=== PATIENT | male | born 1940 | race Caucasian/White ===

== ENCOUNTER 2016-10-19 12:49 | Inpatient (IN) | payer MEDICARE, OTHER ==
[2016-10-19] VITALS (8 sets, daily range): BP systolic 114–135; BP diastolic 60–86; PULSE 87–96; RESP 16–20; TEMP 98; O2SAT 92–98
[~2016-10-19] VITALS: Ht 177.8 cm; Wt 84.0 kg
[~2016-10-19 12:49] MED LIST: ALEN70TA39 PO; AMIT25 PO; ASPI325T PO; CHLO5 PO; CLOP75 PO; DOCU1CAP39 PO; HYDR-3533 PO; METO50 PO; MOBI15TA PO; PEPT262T2 PO; SIMV20 PO; TRAM100T19 PO; [UNRECOGNIZED DRUG - REMARK] PO
[2016-10-19] MEDS ORDERED: SODIUM CHLORIDE 0.9% FLUSH 5 ML FLUSH IVF PRN (13:00)
[2016-10-19] MEDS ORDERED: SODIUM CHLORID 0.9% 500 ML INJ 500 ML IV ONE (13:15)
--- NOTE | 2016-10-19 13:16 | PD ---
HPI Chief Complaint: General Weakness Time Seen by Provider: 13:06 Travel History International Travel<30 days: No Contact w/Intl Traveler<30days: No Traveled to known affect area: No History of Present Illness HPI 75-year-old male with history of CAD, status post CABG, stenting, aortic valve replacement, AVani garcia, presents to the ER today because he states that he has been feeling weak for several months and thinks he may have slipped and fallen 2 days ago, has been on the floor because he was not able to get up for 2 days. He does say he has a small amount of left parasternal chest discomfort which she states is mild and feels like it is burning. He denies any shortness of breath, fevers, vomiting, or any other symptoms. He denies any injuries. Modifying Factors: None Associated Signs & Symptoms: General weakness, chest discomfort, fell, laying on the floor for 2 days Risk Factors: Elderly cardiac history PFSH Past Medical History Hx Anticoagulant Therapy: Yes Arthritis: Yes Asthma: No Atrial Fibrillation: Yes Autoimmune Disease: No Blood Disorders: No Anxiety: Yes Depression: Yes Heart Rhythm Problems: Yes (AFIB) Cancer: No Cardiac Catheterization: Yes (2 STENTS) Cardiovascular Problems: Yes (CABG) High Cholesterol: No Chemotherapy: No Chest Pain: Yes (YEARS AGO) Congestive Heart Failure: No COPD: No Cerebrovascular Accident: Yes Diabetes: No Diminished Hearing: Yes ([place]) Endocrine: No GERD: No Glaucoma: No Genitourinary: Yes Headaches: No Hepatitis: No Hiatal Hernia: No Hypertension: Yes Immune Disorder: No Kidney Stones: Yes Musculoskeletal: Yes (ODONTOID FX. 1991) Neurologic: Yes Psychiatric: Yes Reproductive: No Respiratory: No Immunizations Current: No (UNKNOWN) Migraines: Yes Myocardial Infarction: Yes Radiation Therapy: No Renal Failure: No Seizures: No Sickle Cell Disease: No Sleep Apnea: No Thyroid Disease: No Ulcer: No Past Surgical History Abdominal Surgery: Yes AICD: No Appendectomy: No Arteriovenous Shunt: No Cardiac Surgery: Yes (BYPASS, AORTIC VALVE) Cholecystectomy: Yes Coronary Artery Bypass Graft: Yes (2 BYPASSES, AORTA REPLACED) Coronary Stent: Yes Ear Surgery: No Endocrine Surgery: No Eye Surgery: No Genitourinary Surgery: No Gynecologic Surgery: No Insulin Pump: No Joint Replacement: Yes (L HIP) Oral Surgery: No Pacemaker: No Thoracic Surgery: Yes (TONSILLECTOMY) Tonsillectomy: Yes Valve Replacement: Yes (AORTIC VALVE) Other Surgery: Yes Social History Alcohol Use: No Tobacco Use: No Substance Use: No Allergies-Medications (Allergen,Severity, Reaction): Coded Allergies: Codeine (Verified Allergy, Severe, 10/19/16) CONFUSION, Reported Meds & Prescriptions Reported Meds & Active Scripts Active Reported Aspirin 325 Mg Tab 325 Mg PO DAILY Plavix (Clopidogrel Bisulfate) 75 Mg Tab 75 Mg PO HS Colace (Docusate Sodium) 100 Mg Cap 100 Mg PO BID PRN Mobic (Meloxicam) 15 Mg Tab 15 Mg PO DAILY Metoprolol Tartrate 50 Mg Tab 50 Mg PO BID Zocor (Simvastatin) 20 Mg Tab 20 Mg PO HS Tramadol (Tramadol HCl) 50 Mg Tab 50 Mg PO QID Simethicone 80 Mg Chw 80 Mg CHEW TID PRN Review of Systems Except as stated in HPI: all other systems reviewed are Neg Physical Exam Narrative GENERAL: Well-nourished, well-developed elderly white male patient in no acute distress. Awake and oriented 3. SKIN: Warm and dry. HEAD: Normocephalic. EYES: No scleral icterus. No injection or drainage. NECK: Supple, trachea midline. CARDIOVASCULAR: Regular rate and rhythm without murmurs, gallops, or rubs. RESPIRATORY: Breath sounds equal with intermittent wheezing bilaterally. No accessory muscle use. GASTROINTESTINAL: Abdomen soft, non-tender, nondistended. MUSCULOSKELETAL: No cyanosis, or edema. BACK: Nontender without obvious deformity. No CVA tenderness. Data Data Last Documented VS Vital Signs Date Time Temp Pulse Resp B/P Pulse Ox O2 Delivery O2 Flow Rate FiO2 10/19/16 14:11 93 Room Air 10/19/16 13:42 20 10/19/16 12:58 98.0 95 116/66 Orders Electrocardiogram (10/19/16 12:57) Complete Blood Count With Diff (10/19/16 12:57) Comprehensive Metabolic Panel (10/19/16 12:57) Magnesium (Mg) (10/19/16 12:57) Ckmb (Isoenzyme) Profile (10/19/16 12:57) Troponin I (10/19/16 12:57) Act Partial Throm Time (Ptt) (10/19/16 12:57) Prothrombin Time / Inr (Pt) (10/19/16 12:57) Urinalysis - C+S If Indicated (10/19/16 12:57) Chest, Single Ap (10/19/16 12:57) Ecg Monitoring (10/19/16 12:57) Iv Access Insert/Monitor (10/19/16 12:57) Oximetry (10/19/16 12:57) Sodium Chloride 0.9% Flush (Ns Flush) (10/19/16 13:00) Creatine Kinase (Cpk) (10/19/16 12:57) Sodium Chlorid 0.9% 500 Ml Inj (Ns 500 M (10/19/16 13:15) Pelvis, Ap Only (Routine) (10/19/16 13:16) Ct Brain W/O Iv Contrast(Rout) (10/19/16 13:16) Lactic Acid Sepsis Protocol (10/19/16 15:32) Blood Culture (10/19/16 15:32) Ceftriaxone Inj (Rocephin Inj) (10/19/16 15:32) Azithromycin Inj (Zithromax Inj) (10/19/16 15:32) Admit Order (Ed Use Only) (10/19/16 15:41) Labs Laboratory Tests Test 10/19/16 10/19/16 10/19/16 13:04 13:19 14:09 White Blood Count 16.2 TH/MM3 Red Blood Count 4.15 MIL/MM3 Hemoglobin 9.8 GM/DL Hematocrit 31.6 % Mean Corpuscular Volume 76.1 FL Mean Corpuscular Hemoglobin 23.5 PG Mean Corpuscular Hemoglobin 30.8 % Concent Red Cell Distribution Width 19.3 % Platelet Count 232 TH/MM3 Mean Platelet Volume 8.7 FL Neutrophils (%) (Auto) 80.7 % Lymphocytes (%) (Auto) 9.5 % Monocytes (%) (Auto) 9.6 % Eosinophils (%) (Auto) 0.0 % Basophils (%) (Auto) 0.2 % Neutrophils # (Auto) 13.1 TH/MM3 Lymphocytes # (Auto) 1.5 TH/MM3 Monocytes # (Auto) 1.5 TH/MM3 Eosinophils # (Auto) 0.0 TH/MM3 Basophils # (Auto) 0.0 TH/MM3 CBC Comment AUTO DIFF Differential Comment AUTO DIFF CONFIRMED Platelet Estimate NORMAL Platelet Morphology Comment NORMAL Ovalocytes 1+ Sodium Level 137 MEQ/L Potassium Level 3.8 MEQ/L Chloride Level 100 MEQ/L Carbon Dioxide Level 25.7 MEQ/L Anion Gap 11 MEQ/L Blood Urea Nitrogen 15 MG/DL Creatinine 0.85 MG/DL Estimat Glomerular Filtration 87 ML/MIN Rate Random Glucose 106 MG/DL Calcium Level 8.8 MG/DL Magnesium Level 1.2 MG/DL Total Bilirubin 0.7 MG/DL Aspartate Amino Transf 24 U/L (AST/SGOT) Alanine Aminotransferase 13 U/L (ALT/SGPT) Alkaline Phosphatase 68 U/L Total Creatine Kinase 68 U/L Troponin I LESS THAN 0.02 NG/ML Total Protein 6.6 GM/DL Albumin 2.9 GM/DL Urine Color YELLOW Urine Turbidity CLEAR Urine pH 7.0 Urine Specific [place] 1.018 Urine Protein NEG mg/dL Urine Glucose (UA) NEG mg/dL Urine Ketones 10 mg/dL Urine Occult Blood NEG Urine Nitrite NEG Urine Bilirubin NEG Urine Urobilinogen LESS THAN 2.0 MG/DL Urine Leukocyte Esterase NEG Urine WBC 0-2 /hpf Urine Amorphous Sediment SMALL Urine Bacteria RARE /hpf Urine Mucus RARE /lpf Prothrombin Time 13.4 SEC Prothromb Time International 1.2 RATIO Ratio Activated Partial 26.3 SEC Thromboplast Time MDM Medical Decision Making Medical Screen Exam Complete: Yes Emergency Medical Condition: Yes Medical Record Reviewed: Yes Interpretation(s) EKG shows A. fib at a rate of 90 bpm with no signs of acute ST-T changes. Laboratory Tests Test 10/19/16 10/19/16 10/19/16 13:04 13:19 14:09 White Blood Count 16.2 TH/MM3 (4.0-11.0) Red Blood Count 4.15 MIL/MM3 (4.50-5.90) Hemoglobin 9.8 GM/DL (13.0-17.0) Hematocrit 31.6 % (39.0-51.0) Mean Corpuscular Volume 76.1 FL (80.0-100.0) Mean Corpuscular Hemoglobin 23.5 PG (27.0-34.0) Mean Corpuscular Hemoglobin 30.8 % Concent (32.0-36.0) Red Cell Distribution Width 19.3 % (11.6-17.2) Neutrophils (%) (Auto) 80.7 % (16.0-70.0) Monocytes (%) (Auto) 9.6 % (0.0-8.0) Neutrophils # (Auto) 13.1 TH/MM3 (1.8-7.7) Monocytes # (Auto) 1.5 TH/MM3 (0-0.9) Ovalocytes 1+ (NORMAL) Estimat Glomerular Filtration 87 ML/MIN (>89) Rate Magnesium Level 1.2 MG/DL (1.5-2.5) Troponin I LESS THAN 0.02 NG/ML (0.02-0.05) Albumin 2.9 GM/DL (3.4-5.0) Urine Ketones 10 mg/dL (NEG) Urine Bacteria RARE /hpf (NONE) Prothrombin Time 13.4 SEC (9.8-11.6) Last [address] 10/19/16 1316 Signed Impressions: Service Date/Time: Wednesday, October 19, 2016 13:44 - CONCLUSION: 1. Mild to moderate periventricular and subcortical white matter small vessel ischemic changes bilaterally. 2. Mild diffuse cerebral atrophy. 3. Old lacunar infarcts within the right basal ganglia and left cerebellar hemisphere. 4. No acute infarct, acute hemorrhage, midline shift or extra-axial fluid collections. Enio Dejesus MD Differential Diagnosis General weakness, chest discomfort, falldehydration versus metabolic issues versus rhabdomyolysis versus ACS versus dysrhythmias Narrative Course Lab work shows leukocytosis and saturations are decreased, I am concerned for possible underlying pneumonia. Patient is generally weak, could not get himself off the floor, and I am concerned with him living alone. Lab work otherwise does not indicate any rhabdomyolysis. CT of the brain is negative for any signs of acute issues. At this point, my plan would be to admit him for further treatment and PT evaluation for activities of daily living. Case is discussed with family practice residents for admission. Diagnosis Primary Impression: SEPSIS, UNSPECIFIED ORGANISM Additional Impression: REPEATED FALLS Admitting Information Admitting Physician Requests: Admit Lukasz Hamilton MD Oct 19, 2016 13:16
[2016-10-19 13:19] LABS: AUTOMATED NEUTROPHIL # 13.1 TH/MM3 (1.8-7.7); BASOPHIL % 0.2 % (0.0-2.0); HEMATOCRIT 31.6 % (39.0-51.0); LYMPH % 9.5 % (9.0-44.0); LYMPHOCYTE # 1.5 TH/MM3 (1.0-4.8); MEAN CELL VOLUME 76.1 FL (80.0-100.0); MEAN CORPUSCULAR HEMOGLOBIN 23.5 PG (27.0-34.0); MEAN CORPUSCULAR HGB CONC 30.8 % (32.0-36.0); MONO % 9.6 % (0.0-8.0); NEUT % 80.7 % (16.0-70.0); PLATELET COUNT 232 TH/MM3 (150-450); RED BLOOD COUNT 4.15 MIL/MM3 (4.50-5.90); RED CELL DISTRIBUTION WIDTH 19.3 % (11.6-17.2); WHITE BLOOD COUNT 16.2 TH/MM3 (4.0-11.0)
[2016-10-19] MEDS ORDERED: METO50TA PO (13:19)
[2016-10-19] MEDS ORDERED: ZOCO20TA PO (13:19)
[2016-10-19] MEDS ORDERED: TRAM50TA PO (13:19)
[2016-10-19] MEDS ORDERED: MOBI15TA PO (13:19)
[2016-10-19] MEDS ORDERED: COLA100C3 PO (13:19)
[2016-10-19] MEDS ORDERED: PLAV75TA29 PO (13:19)
[2016-10-19] MEDS ORDERED: ASPI325T PO (13:19)
[2016-10-19] MEDS ORDERED: SIME80CH CHEW (13:19)
[2016-10-19 13:26] LABS: HEMO FLAGS AUTO DIFF
[2016-10-19 13:39] LABS: BLOOD, URINE NEG (NEG); GLUCOSE,URINE NEG (NEG); KETONE, URINE 10 mg/dL (NEG); NITRITE,URINE NEG (NEG); URINE COLOR YELLOW (YELLW/STRAW)
[2016-10-19 13:50] LABS: ALKALINE PHOSPHATASE 68 U/L (45-117); ALT (GPT) 13 U/L (12-78); ANION GAP 11 MEQ/L (5-15); AST (GOT) 24 U/L (15-37); BICARBONATE 25.7 MEQ/L (21.0-32.0); BLOOD UREA NITROGEN 15 MG/DL (7-18); CHLORIDE 100 MEQ/L (98-107); GLOMERULAR FILTRATION RATE 87 ML/MIN (>89); MAGNESIUM 1.2 MG/DL (1.5-2.5); SODIUM (NA) 137 MEQ/L (136-145); TOTAL BILIRUBIN ADULT 0.7 MG/DL (0.2-1.0)
[2016-10-19 13:51] LABS: CREATINE KINASE 68 U/L (39-308); POTASSIUM 3.8 MEQ/L (3.5-5.1)
[2016-10-19 13:57] LABS: OVALOCYTES 1+ (NORMAL); PLATELET ESTIMATE SMEAR NORMAL (NORMAL); PLATELET MORPHOLOGY NORMAL (NORMAL); SCAN/DIFF AUTO DIFF CONFIRMED
[2016-10-19 14:03] LABS: BACTERIA, URINE RARE /hpf; CULTURE IF INDICATED CULT NOT INDICATED; MUCUS URINE RARE /lpf (OCC); WBC, URINE 0-2 /hpf (0-5)
--- NOTE | 2016-10-19 14:14 | RADRPT ---
EXAM DATE/TIME: 10/19/2016 13:44 [facility] COMPARISON: CT BRAIN W/O CONTRAST, March 05, 2016, 16:07. INDICATIONS : Trauma. Fell 2 days ago and was on the floor ever since. RADIATION DOSE: 56.35 CTDIvol (mGy) MEDICAL HISTORY : Cardiovascular disease. Cardiovascular disease Hypertension.C1, C2 fractures. SURGICAL HISTORY : CABG ENCOUNTER: Initial ACUITY: 2 days PAIN SCALE: 0/10 LOCATION: Cranial TECHNIQUE: Multiple contiguous axial images were obtained of the head. Using automated exposure control and adj ustment of the mA and/or kV according to patient size, radiation dose was kept as low as reasonably a chievable to obtain optimal diagnostic quality images. FINDINGS: There are old lacunar infarcts involving the right basal ganglia and left cerebellar hemisphere which are unchanged. Mild diffuse cerebral atrophy is noted. Mild to moderate periventri cular and subcortical white matter small vessel ischemic changes are noted bilaterally. There is no acute hemo rrhage, acute infarct, mass effect or extra-axial fluid collections. The bone windows are unremarkable. CONCLUSION: 1. Mild to moderate periventricular and subcortical white matter small vessel ischemic changes bilate rally. 2. Mild diffuse cerebral atrophy. 3. Old lacunar infarcts within the right basal ganglia and left cerebellar hemisphere. 4. No acute infarct, acute hemorrhage, midline shift or extra-axial fluid collections. Enio Dejesus MD on October 19, 2016 at 13:58 Board Certified Radiologist. This report was verified electronically.
[2016-10-19 14:31] LABS: APTT (PATIENT) 26.3 SEC (24.3-30.1); INTERNATIONAL NORMALIZED RATIO 1.2 RATIO; PROTHROMBIN TIME - PATIENT 13.4 SEC (9.8-11.6)
--- NOTE | 2016-10-19 15:11 | RADRPT ---
EXAM DATE/TIME: 10/19/2016 14:49 [facility] COMPARISON: PELVIS AP ONLY, March 05, 2016, 16:02. INDICATIONS : Back area pain after fall. MEDICAL HISTORY : None. SURGICAL HISTORY : CABG. Left hip replacement 1995. H/O 2 stents and aortic valve. Open heart [id number]. ENCOUNTER: Initial ACUITY: 2 days PAIN SCORE: 7/10 LOCATION: Bilateral pelvis. Kidney and back area. FINDINGS: The patient is status post left hip replacement with prosthesis in good position. There is no acute fracture or dislocation of the bony pelvis. CONCLUSION: 1. No acute fracture or dislocation. 2. Status post left total hip arthroplasty. Enio Dejesus MD on October 19, 2016 at 15:04 Board Certified Radiologist. This report was verified electronically.
--- NOTE | 2016-10-19 15:13 | RADRPT ---
EXAM DATE/TIME: 10/19/2016 14:53 [facility] COMPARISON: CT ABDOMEN & PELVIS W CONTRAST, January 09, 2013, 16:09. CHEST SINGLE AP, March 05, 2016, 15:59. INDICATIONS : Palpitations. MEDICAL HISTORY : None. SURGICAL HISTORY : CABG. H/O 2 stents and double bypass, aortic valve. ENCOUNTER: Initial ACUITY: 2 days PAIN SCORE: 0/10 LOCATION: Bilateral chest FINDINGS: The heart is enlarged. Median sternotomy wires are noted status post cardiac surgery. Scattered inc reased interstitial markings are noted consistent with fibrotic scarring and/or atelectasis. CONCLUSION: 1. Scattered increased interstitial markings consistent with atelectasis and/or fibrotic scarring. 2. Cardiomegaly. Enio Dejesus MD on October 19, 2016 at 15:06 Board Certified Radiologist. This report was verified electronically.
[2016-10-19] MEDS ORDERED: cefTRIAXone INJ 2,000 MG in SODIUM CHLORIDE 0.9% INJ 100 ML IV STA (15:32)
[2016-10-19] MEDS ORDERED: AZITHROMYCIN INJ 500 MG in SODIUM CHLOR 0.9% 250 ML INJ 250 ML IV STA (15:32)
--- NOTE | 2016-10-19 15:54 | HHI.HP ---
[facility] Service Family Medicine Team A Dr. Kumar attending Dr. Powell PGY2 Dr. Farley PGY1 Dr. Chaidez PGY3 Primary Care Physician [facility] Admission Diagnosis sepsis/general weakness/frequent falls Diagnoses: International Travel<30 Days: No Contact w/Intl Traveler<30days: No Known Affected Area: No History of Present Illness This is a 75 yo male with a medical history significant for CAD, s/p CABG, aortic valve replacement, bilateral knee OA, and a-fib who presents to ED after sustaining a fall 2 days ago. The patient reports he has been fallen several times over the years because he gets "weak in the knees." He usually ambulates with a cane or a walker. He fell two days ago, and could not get up. After trying for two days and stooling on himself, he called 911 using the phone next to him. He denies every having CP, SOB, or lightheaded ness. He is estranged from his children. [facility], last seen over 6 months ago. Was supposed to see a pain management doctor on Tuesday. The patient admits that he cannot care for himself anymore. He is saddened by this , but would like to live some where where he could be cared for. Review of Systems Constitutional: DENIES: Fever, Chills Respiratory: COMPLAINS OF: Shortness of breath, DENIES: Cough Cardiovascular: DENIES: Chest pain, Palpitations Gastrointestinal: COMPLAINS OF: Abdominal pain, Constipation, Diarrhea, DENIES : Black stools, Bloody stools, Nausea, Vomiting Musculoskeletal: COMPLAINS OF: Joint pain, Stiffness, Joint Swelling Neurologic: COMPLAINS OF: Abnormal gait, Localized weakness, Poor Balance Past Family Social History Past Medical History Diverticulitis CAD with stent placement A-Fib Hyperlipidemia Past Surgical History left hip replacement lap toan Reported Medications Last Impressions Pelvis X-Ray 10/19/166 Signed Impressions: Service Date/Time: Wednesday, October 19, 2016 14:49 - CONCLUSION: 1. No acute fracture or dislocation. 2. Status post left total hip arthroplasty. Enio Dejesus MD Head CT 10/19/166 Signed Impressions: Service Date/Time: Wednesday, October 19, 2016 13:44 - CONCLUSION: 1. Mild to moderate periventricular and subcortical white matter small vessel ischemic changes bilaterally. 2. Mild diffuse cerebral atrophy. 3. Old lacunar infarcts within the right basal ganglia and left cerebellar hemisphere. 4. No acute infarct, acute hemorrhage, midline shift or extra-axial fluid collections. Enio Dejesus MD Chest X-Ray 10/19/16 1257 Signed Impressions: Service Date/Time: Wednesday, October 19, 2016 14:53 - CONCLUSION: 1. Scattered increased interstitial markings consistent with atelectasis and/or fibrotic scarring. 2. Cardiomegaly. Enio Dejesus MD Allergies: Coded Allergies: Codeine (Verified Allergy, Severe, 10/19/16) CONFUSION, Family History One child with marfans mother passed of pancreatic ca father unknown medical history Social History denies x3 lives alone Physical Exam Vital Signs Vital Signs Date Time Temp Pulse Resp B/P Pulse Ox O2 Delivery O2 Flow Rate FiO2 10/19/16 14:11 93 Room Air 10/19/16 13:42 20 Room Air 10/19/16 12:58 98.0 95 20 116/66 92 Room Air 10/19/16 12:53 98.0 Physical Exam GENERAL: This is a well-nourished, well-developed patient, laying in bed, diaper on, smells of stool SKIN: No rashes, ecchymoses or lesions. Cool and dry. HEAD: Atraumatic. Normocephalic. No temporal or scalp tenderness. EYES: Pupils equal round and reactive. Extraocular motions intact. No scleral icterus. No injection or drainage. ENT: Nose without bleeding, purulent drainage or septal hematoma. Throat without erythema, tonsillar hypertrophy or exudate. Uvula midline. Airway patent. NECK: Trachea midline. No JVD or lymphadenopathy. Supple, nontender, no meningeal signs. CARDIOVASCULAR: Regular rate and rhythm without murmurs, gallops, or rubs. RESPIRATORY: Clear to auscultation, although slightly diminished at the bases. Breath sounds equal bilaterally. No wheezes, rales, or rhonchi. GASTROINTESTINAL: Abdomen soft, nondistended. Mild tenderness to palpation of left lower quadrant. No hepato-splenomegaly, or palpable masses. No guarding. MUSCULOSKELETAL: Extremities without clubbing, cyanosis, or edema. No joint tenderness, effusion, or edema noted. No calf tenderness. NEUROLOGICAL: Awake and alert. Motor and sensory grossly within normal limits. Can lift the legs against gravity. Normal speech. Laboratory Laboratory Tests Test 10/19/16 10/19/16 10/19/16 13:04 13:19 14:09 White Blood Count 16.2 Red Blood Count 4.15 Hemoglobin 9.8 Hematocrit 31.6 Mean Corpuscular Volume 76.1 Mean Corpuscular Hemoglobin 23.5 Mean Corpuscular Hemoglobin 30.8 Concent Red Cell Distribution Width 19.3 Platelet Count 232 Mean Platelet Volume 8.7 Neutrophils (%) (Auto) 80.7 Lymphocytes (%) (Auto) 9.5 Monocytes (%) (Auto) 9.6 Eosinophils (%) (Auto) 0.0 Basophils (%) (Auto) 0.2 Neutrophils # (Auto) 13.1 Lymphocytes # (Auto) 1.5 Monocytes # (Auto) 1.5 Eosinophils # (Auto) 0.0 Basophils # (Auto) 0.0 CBC Comment AUTO DIFF Differential Comment AUTO DIFF CONFIRMED Platelet Estimate NORMAL Platelet Morphology Comment NORMAL Ovalocytes 1+ Sodium Level 137 Potassium Level 3.8 Chloride Level 100 Carbon Dioxide Level 25.7 Anion Gap 11 Blood Urea Nitrogen 15 Creatinine 0.85 Estimat Glomerular Filtration 87 Rate Random Glucose 106 Calcium Level 8.8 Magnesium Level 1.2 Total Bilirubin 0.7 Aspartate Amino Transf 24 (AST/SGOT) Alanine Aminotransferase 13 (ALT/SGPT) Alkaline Phosphatase 68 Total Creatine Kinase 68 Troponin I LESS THAN 0.02 Total Protein 6.6 Albumin 2.9 Urine Color YELLOW Urine Turbidity CLEAR Urine pH 7.0 Urine Specific [place] 1.018 Urine Protein NEG Urine Glucose (UA) NEG Urine Ketones 10 Urine Occult Blood NEG Urine Nitrite NEG Urine Bilirubin NEG Urine Urobilinogen LESS THAN 2.0 Urine Leukocyte Esterase NEG Urine WBC 0-2 Urine Amorphous Sediment SMALL Urine Bacteria RARE Urine Mucus RARE Prothrombin Time 13.4 Prothromb Time International 1.2 Ratio Activated Partial 26.3 Thromboplast Time Result Diagram: 10/19/16 1304 10/19/16 1304 Imaging Last Impressions Pelvis X-Ray 10/19/16 1316 Signed Impressions: Service Date/Time: Wednesday, October 19, 2016 14:49 - CONCLUSION: 1. No acute fracture or dislocation. 2. Status post left total hip arthroplasty. Enio Dejesus MD Head CT 10/19/16 1316 Signed Impressions: Service Date/Time: Wednesday, October 19, 2016 13:44 - CONCLUSION: 1. Mild to moderate periventricular and subcortical white matter small vessel ischemic changes bilaterally. 2. Mild diffuse cerebral atrophy. 3. Old lacunar infarcts within the right basal ganglia and left cerebellar hemisphere. 4. No acute infarct, acute hemorrhage, midline shift or extra-axial fluid collections. Enio Dejesus MD Chest X-Ray 10/19/16 1257 Signed Impressions: Service Date/Time: Wednesday, October 19, 2016 14:53 - CONCLUSION: 1. Scattered increased interstitial markings consistent with atelectasis and/or fibrotic scarring. 2. Cardiomegaly. Enio Dejesus MD Assessment and Plan Assessment and Plan 75 yo male with A-fib, CAD, and severe OA was found in his home after falling two days ago. Patient found to have anemia, concern for PNA, and is unable to care for himself. Code Status Full Discussed Condition With Dr. Joy Powell Problem List: (1) Fall Status: Acute Plan: Patient having multiple mechanical falls over the past year. This fall occurred two days ago and patient has been laying on the floor ever since. There was no LOC. - no signs of rhabdo - pelvic x-ray negative for fracture - PT eval (2) Elderly person living alone Status: Acute Plan: Patient is unable to care for himself. He has no family around. It is unsafe for him to return home. After he is treated for his acute conditions; PNA and anemia, he will need to be placed at a [facility]. - will consult PT to get the patient up and get a better idea of his physical limitations (3) Pneumonia Status: Acute Plan: See CXR above. Atelectasis and/or fibrotic scarring. Patient with leukocytosis and some diminished breath sounds. Also has leukocytosis. - Will treat with azithromycin and rocephin (10/20- - If no improvement in clinical picture of improvement in WBC, may consider expanding abx coverage to include anerobic coverage as it is possible he aspirated while on the floor for such a long period of time (4) Anemia Status: Acute Plan: Microcytic anemia.Hb on admission 9.8, previously 15 in February of 2016. Reports colonoscopy in his 50s. He states over the years he has given stool samples and they have been normal. He has been on tramadol and meloxicam chronically for is OA, so may have an ulcer or some gastritis. Will hold these while in the hospital. - protonix 40 mg IV BID - NS @ 100 cc/hr - hemoccult ordered (I attempted to do this in the ED, but they could not locate any hemoccult cards) - repeat in the am - if hemoccult positive consider GI consult (5) Hyperlipidemia Status: Acute Plan: continue statin (6) Atrial fibrillation Status: Acute Plan: continue metoprolol, plavix, ASA (7) FEN Status: Acute Plan: Fluids: IVF 100 cc/hr Electrolytes: currently wnl Nutrition: regular diet, make NPO at midnight if hemoccult positive Anne Chaidez MD R3 Oct 19, 2016 15:54
[2016-10-19] MEDS ORDERED: TEMAZEPAM 15 MG CAP PO PRN (17:00)
[2016-10-19] MEDS ORDERED: ONDANSETRON HCL 4 MG/2 ML VIAL IV PRN (17:00)
[2016-10-19] MEDS ORDERED: SODIUM CHLORIDE 0.9% FLUSH 5 ML FLUSH FLUSH PRN (17:00)
[2016-10-19] MEDS ORDERED: NALOXONE HCL 0.4 MG/ML AMP IV PRN (17:00)
[2016-10-19] MEDS ORDERED: SIMETHICONE 80 MG CHEWABLE TAB CHEW PRN (17:00)
[2016-10-19] MEDS: SODIUM CHLOR 0.9% 1000 ML INJ 1,000 ML IV SCH (19:33)
[2016-10-19] MEDS: MORPHINE SULFATE 4 MG/ML INJ IV PUSH PRN (19:34)
[2016-10-19] MEDS: PANTOPRAZOLE SODIUM 40 MG VIAL IV PUSH SCH (19:34)
[2016-10-19] MEDS: SODIUM CHLORIDE 0.9% FLUSH 5 ML FLUSH FLUSH SCH (20:52)
[2016-10-19] MEDS: PRAVASTATIN SOD 40 MG TAB PO SCH (21:02)
[2016-10-19] MEDS: METOPROLOL TARTRATE 50 MG TAB PO SCH (21:02)
[2016-10-19] MEDS: CLOPIDOGREL 75 MG TAB PO SCH ×2 (21:02→21:08)
[2016-10-20] VITALS (7 sets, daily range): BP systolic 98–172; BP diastolic 55–87; PULSE 73–95; RESP 14–18; TEMP 97.5–98.5; O2SAT 93–100
[2016-10-20] MEDS: SODIUM CHLOR 0.9% 1000 ML INJ 1,000 ML IV SCH ×2 (04:15→13:00)
[2016-10-20] MEDS: PANTOPRAZOLE SODIUM 40 MG VIAL IV PUSH SCH ×2 (04:16→18:04)
[2016-10-20 04:31] LABS: AUTOMATED NEUTROPHIL # 10.6 TH/MM3 (1.8-7.7); BASOPHIL % 0.3 % (0.0-2.0); HEMATOCRIT 29.8 % (39.0-51.0); LYMPH % 10.7 % (9.0-44.0); LYMPHOCYTE # 1.4 TH/MM3 (1.0-4.8); MEAN CELL VOLUME 76.5 FL (80.0-100.0); MEAN CORPUSCULAR HEMOGLOBIN 23.6 PG (27.0-34.0); MEAN CORPUSCULAR HGB CONC 30.8 % (32.0-36.0); MONO % 10.6 % (0.0-8.0); NEUT % 78.4 % (16.0-70.0); PLATELET COUNT 187 TH/MM3 (150-450); RED BLOOD COUNT 3.89 MIL/MM3 (4.50-5.90); RED CELL DISTRIBUTION WIDTH 19.1 % (11.6-17.2); WHITE BLOOD COUNT 13.5 TH/MM3 (4.0-11.0)
[2016-10-20 04:51] LABS: HEMO FLAGS AUTO DIFF
[2016-10-20 05:01] LABS: ALKALINE PHOSPHATASE 69 U/L (45-117); ALT (GPT) 14 U/L (12-78); ANION GAP 9 MEQ/L (5-15); AST (GOT) 19 U/L (15-37); BICARBONATE 25.5 MEQ/L (21.0-32.0); BLOOD UREA NITROGEN 11 MG/DL (7-18); CHLORIDE 104 MEQ/L (98-107); GLOMERULAR FILTRATION RATE 98 ML/MIN (>89); SODIUM (NA) 138 MEQ/L (136-145); TOTAL BILIRUBIN ADULT 0.5 MG/DL (0.2-1.0)
--- NOTE | 2016-10-20 08:22 | HHI.FPPN ---
Subjective Remarks Patient seen and examined this am. No overnight events. Reports he feels wonderful. No complaints or concerns. Denies CP or SOB. Had large BM this am. (Anne Chaidez MD R3) Objective Vitals Vital Signs Date Time Temp Pulse Resp B/P Pulse Ox O2 Delivery O2 Flow Rate FiO2 10/20/16 06:00 87 14 104/57 97 10/20/16 05:35 94 21 10/20/16 01:00 90 14 98/55 93 10/19/16 21:00 96 18 126/86 95 Room Air 10/19/16 20:51 18 10/19/16 20:00 89 18 119/64 98 Room Air 10/19/16 19:00 87 16 135/65 95 Room Air 10/19/16 18:00 92 16 128/67 94 Room Air 10/19/16 15:53 87 18 114/60 94 Room Air 10/19/16 14:11 93 Room Air 10/19/16 13:42 20 Room Air 10/19/16 12:58 98.0 95 20 116/66 92 Room Air 10/19/16 12:53 98.0 (Anne Chaidez MD R3) Result Diagram: 10/20/16 0403 10/20/16 0403 Imaging Last Impressions Pelvis X-Ray 10/19/16 1316 Signed Impressions: Service Date/Time: Wednesday, October 19, 2016 14:49 - CONCLUSION: 1. No acute fracture or dislocation. 2. Status post left total hip arthroplasty. Enio Dejesus MD Head CT 10/19/16 1316 Signed Impressions: Service Date/Time: Wednesday, October 19, 2016 13:44 - CONCLUSION: 1. Mild to moderate periventricular and subcortical white matter small vessel ischemic changes bilaterally. 2. Mild diffuse cerebral atrophy. 3. Old lacunar infarcts within the right basal ganglia and left cerebellar hemisphere. 4. No acute infarct, acute hemorrhage, midline shift or extra-axial fluid collections. Enio Dejesus MD Chest X-Ray 10/19/16 1257 Signed Impressions: Service Date/Time: Wednesday, October 19, 2016 14:53 - CONCLUSION: 1. Scattered increased interstitial markings consistent with atelectasis and/or fibrotic scarring. 2. Cardiomegaly. Enio Dejesus MD Objective Remarks GENERAL: Obese male sitting on side of bed. Appears comfortable. SKIN: Warm and dry. HEAD: Normocephalic. EYES: No scleral icterus. No injection or drainage. NECK: Supple, trachea midline. No JVD or lymphadenopathy. CARDIOVASCULAR: Regular rate and rhythm without murmurs, gallops, or rubs. RESPIRATORY: Breath sounds equal bilaterally. No accessory muscle use. GASTROINTESTINAL: Abdomen soft, non-tender, nondistended. MUSCULOSKELETAL: No cyanosis, or edema. BACK: Nontender without obvious deformity. (Anne Chaidez MD R3) A/P Assessment and Plan 75 yo male with A-fib, CAD, and severe OA was found in his home after falling two days ago. Patient found to have anemia, concern for PNA, and is unable to care for himself. Discharge Planning D/C pending PT eval and placement. seen and discussed with Sherry Maynard, and Miguelito (Anne Chaidez MD R3) Attending Attestation A detailed discussion with Dr Chaidez, Dr Powell, Dr Farley and Dr Acevedo about patients admission was held this morning, patient was then seen and examined by the team, agree with the contents of this note,Assessment and Plan appropiate, See Orders. (Garth Kumar MD) Problem List: (1) Fall Status: Acute Plan: Patient having multiple mechanical falls over the past year. This fall occurred two days ago and patient has been laying on the floor ever since. There was no LOC. - no signs of rhabdo - pelvic x-ray negative for fracture - PT eval still pending (2) Elderly person living alone Status: Acute Plan: Patient is unable to care for himself. He has no family around. It is unsafe for him to return home. After he is treated for his acute conditions; PNA and anemia, [facility] - will consult PT to get the patient up and get a better idea of his physical limitations (3) Pneumonia Status: Acute Plan: See CXR above. Atelectasis and/or fibrotic scarring. Patient with persistent leukocytosis and some diminished breath sounds. - Continue azithromycin and rocephin (10/20- (4) Anemia Status: Acute Plan: Microcytic anemia.Hb on admission 9.8, previously 15 in February of 2016. Reports colonoscopy in his 50s. He states over the years he has given stool samples and they have been normal. He has been on tramadol and meloxicam chronically for is OA, so may have an ulcer or some gastritis vs ulcer. - protonix 40 mg IV BID - NS @ 100 cc/hr - hemoccult negative (5) Hyperlipidemia Status: Acute Plan: continue statin (6) Atrial fibrillation Status: Acute Plan: continue metoprolol, plavix, ASA (7) FEN Status: Acute Plan: Fluids: IVF 100 cc/hr Electrolytes: currently wnl Nutrition: regular diet, hemoccult negative (Anne Chaidez MD R3) Anne Chaidez MD R3 Oct 20, 2016 08:22 Garth Kumar MD Oct 20, 2016 16:31
[2016-10-20] MEDS: SODIUM CHLORIDE 0.9% FLUSH 5 ML FLUSH FLUSH SCH ×2 (09:00→20:21)
[2016-10-20] MEDS: ASPIRIN 325 MG TAB PO SCH (09:40)
[2016-10-20] MEDS: METOPROLOL TARTRATE 50 MG TAB PO SCH ×2 (09:40→20:21)
[2016-10-20] MEDS: AZITHROMYCIN 250 MG TAB PO SCH (09:40)
[2016-10-20 09:41] LABS: SCAN/DIFF AUTO DIFF CONFIRMED
[2016-10-20] MEDS: cefTRIAXone INJ 1,000 MG in SODIUM CHLORIDE 0.9% INJ 100 ML IV SCH (09:41)
[2016-10-20 09:43] LABS: OVALOCYTES 1+ (NORMAL)
[2016-10-20] MEDS: MORPHINE SULFATE 4 MG/ML INJ IV PUSH PRN ×2 (15:16→20:22)
--- NOTE | 2016-10-20 17:14 | HHI.DCPOC ---
Discharge Care Plan Diagnosis: (1) Fall (2) Generalized weakness (3) Pneumonia (4) Microcytic anemia (5) Atrial fibrillation (6) Hyperlipidemia Goals to Promote Your Health * To prevent worsening of your condition and complications * To maintain your health at the optimal level Directions to Meet Your Goals Take your medications as prescribed Follow your dietary instruction Follow activity as directed Keep your appointments as scheduled Take your immunizations and boosters as scheduled If your symptoms worsen call your PCP, if no PCP go to Urgent Care Center or Emergency Room Smoking is Dangerous to Your Health. Avoid second hand smoke Call the 24-hour hour crisis hotline for domestic abuse at Jennifer Farley MD R1 Oct 20, 2016 17:14
[2016-10-20] MEDS: PRAVASTATIN SOD 40 MG TAB PO SCH (20:21)
[2016-10-20] MEDS: CLOPIDOGREL 75 MG TAB PO SCH (20:21)
--- NOTE | 2016-10-20 22:47 | EKG ---
Date Performed: 10/19/2016 Time Performed: 13:02:40 PTAGE: 75 years EKG: ATRIAL FIBRILLATION MODERATE ST DEPRESSION ABNORMAL ECG PREVIOUS TRACING : 03/05/2016 15.41 Compared to prior tracing no significant change DOCTOR: Marek Brock Interpretating Date/Time 10/20/2016 22:43:58
[2016-10-21] VITALS (7 sets, daily range): BP systolic 104–131; BP diastolic 62–68; PULSE 64–93; RESP 17–21; TEMP 97.4–98.7; O2SAT 92–99
[2016-10-21] MEDS: SODIUM CHLOR 0.9% 1000 ML INJ 1,000 ML IV SCH ×2 (04:44→09:00)
[2016-10-21] MEDS: PANTOPRAZOLE SODIUM 40 MG VIAL IV PUSH SCH (05:50)
[2016-10-21 07:38] LABS: HEMATOCRIT 31.7 % (39.0-51.0); MEAN CELL VOLUME 76.7 FL (80.0-100.0); MEAN CORPUSCULAR HEMOGLOBIN 23.2 PG (27.0-34.0); MEAN CORPUSCULAR HGB CONC 30.3 % (32.0-36.0); PLATELET COUNT 239 TH/MM3 (150-450); RED BLOOD COUNT 4.14 MIL/MM3 (4.50-5.90); WHITE BLOOD COUNT 11.4 TH/MM3 (4.0-11.0)
[2016-10-21 07:41] LABS: REVIEW FLAG FINAL
[2016-10-21 07:52] LABS: BICARBONATE 26.7 MEQ/L (21.0-32.0); POTASSIUM 3.8 MEQ/L (3.5-5.1)
[2016-10-21] MEDS: cefTRIAXone INJ 1,000 MG in SODIUM CHLORIDE 0.9% INJ 100 ML IV SCH (09:00)
[2016-10-21] MEDS: METOPROLOL TARTRATE 50 MG TAB PO SCH ×2 (09:00→20:42)
[2016-10-21] MEDS: SODIUM CHLORIDE 0.9% FLUSH 5 ML FLUSH FLUSH SCH ×2 (09:01→20:43)
[2016-10-21] MEDS: ASPIRIN 325 MG TAB PO SCH (09:01)
[2016-10-21] MEDS: AZITHROMYCIN 250 MG TAB PO SCH (09:01)
[2016-10-21] MEDS: MORPHINE SULFATE 4 MG/ML INJ IV PUSH PRN (09:03)
--- NOTE | 2016-10-21 11:10 | HHI.FPPN ---
Subjective Remarks No acute issues overnight. Vitals are stable, patient remains afebrile. He feels well overall today. He denies any chest pain, shortness of breath, fever, chills, nausea or vomiting. He is tolerating oral intake. He would like to increase the frequency of his simethicone chews due to gas. Objective Vitals Vital Signs Date Time Temp Pulse Resp B/P Pulse Ox O2 Delivery O2 Flow Rate FiO2 10/21/16 07:28 97.4 93 17 118/62 94 10/21/16 03:56 97.7 85 18 104/65 92 10/21/16 02:24 98.7 67 21 131/68 98 10/21/16 01:54 99 21 10/20/16 21:15 16 10/20/16 20:44 98.5 73 18 172/87 98 10/20/16 18:48 21 10/20/16 15:33 97.5 94 18 138/69 100 10/20/16 12:49 97.5 88 18 114/65 97 I/O 10/20/16 10/20/16 10/20/16 10/21/16 10/21/16 10/21/16 07:00 15:00 23:00 07:00 15:00 23:00 Intake Total 480 ml Balance 480 ml Intake Oral 480 ml # Voids 1 4 # Bowel Movements 1 1 5 Result Diagram: 10/21/16 0639 10/21/16 0639 Imaging Last Impressions Pelvis X-Ray 10/19/16 1316 Signed Impressions: Service Date/Time: Wednesday, October 19, 2016 14:49 - CONCLUSION: 1. No acute fracture or dislocation. 2. Status post left total hip arthroplasty. Enio Dejesus MD Head CT 10/19/16 1316 Signed Impressions: Service Date/Time: Wednesday, October 19, 2016 13:44 - CONCLUSION: 1. Mild to moderate periventricular and subcortical white matter small vessel ischemic changes bilaterally. 2. Mild diffuse cerebral atrophy. 3. Old lacunar infarcts within the right basal ganglia and left cerebellar hemisphere. 4. No acute infarct, acute hemorrhage, midline shift or extra-axial fluid collections. Enio Dejesus MD Chest X-Ray 10/19/16 1257 Signed Impressions: Service Date/Time: Wednesday, October 19, 2016 14:53 - CONCLUSION: 1. Scattered increased interstitial markings consistent with atelectasis and/or fibrotic scarring. 2. Cardiomegaly. Enio Dejesus MD Objective Remarks GENERAL: Obese male laying in bed comfortably. SKIN: Warm and dry. HEAD: Normocephalic. EYES: No scleral icterus. No injection or drainage. NECK: Supple, trachea midline. No JVD or lymphadenopathy. CARDIOVASCULAR: Regular rate and rhythm without murmurs, gallops, or rubs. RESPIRATORY: Breath sounds equal, clear bilaterally. No accessory muscle use. GASTROINTESTINAL: Abdomen soft, non-tender, nondistended. MUSCULOSKELETAL: No cyanosis, or edema. BACK: Nontender without obvious deformity. A/P Assessment and Plan 75 yo male with PMH of A-fib, CAD, and severe OA was found in his home after falling two days prior. Patient found to have anemia, and was admitted for PNA and inability to care for himself. Discharge Planning Anticipate discharge to SNF pending placement. maurice Kumar Problem List: (1) Fall Status: Acute Plan: Patient having multiple mechanical falls over the past year. The patient stayed on the floor for 2 days after his most recent fall. There was no LOC. - no signs of rhabdo - pelvic x-ray negative for fracture - PT recommends rehab (2) Elderly person living alone Status: Acute Plan: Patient is unable to care for himself. He has no family around. It is unsafe for him to return home. Currently awaiting placement at SNF. (3) Pneumonia Status: Acute Plan: 10/19 CXR shows scattered increased interstitial markings consistent with atelectasias and/or fibrotic scarring, cardiomegaly. Leukocytosis trending down from 13.5 to 11.4 today. DC Rocephin 1 g IV Q24 (10/19-10/21) - Continue azithromycin 500mg PO daily (10/19- ) (4) Anemia Status: Chronic Plan: Microcytic anemia Hb on admission 9.8, previously 15 in February of 2016. Reports colonoscopy in his 50s. He states over the years he has given stool samples and they have been normal. He has been on tramadol and meloxicam chronically for is OA, so may have an ulcer or some gastritis vs ulcer. Hemoccult negative H/H stable at 9.6/31.7 (5) Hyperlipidemia Status: Chronic Plan: continue statin (6) Atrial fibrillation Status: Chronic Plan: continue metoprolol, plavix, ASA (7) FEN Status: Acute Plan: Fluids: DC IV fluids Electrolytes: currently wnl Nutrition: regular diet DVT PPx: SCD's Problem Qualifiers (1) Fall: Qualified Code: W19.XXXA - Fall, initial encounter (2) Pneumonia: Qualified Code: J18.9 - Pneumonia of both lungs due to infectious organism, unspecified part of lung (3) Anemia: Qualified Code: D64.9 - Anemia, unspecified type (4) Hyperlipidemia: Qualified Code: E78.5 - Hyperlipidemia, unspecified hyperlipidemia type (5) Atrial fibrillation: Qualified Code: I48.2 - Chronic atrial fibrillation Courtney Powell MD R2 Oct 21, 2016 11:09
[2016-10-21] MEDS: SIMETHICONE 80 MG CHEWABLE TAB CHEW PRN ×3 (12:04→20:42)
[2016-10-21] MEDS: MELOXICAM 15 MG TAB PO SCH (12:04)
[2016-10-21] MEDS: traMADol HCL 50 MG TAB PO SCH ×2 (12:04→18:12)
[2016-10-21] MEDS ORDERED: MAGNESIUM HYDROXIDE SUSP 30 ML CUP PO PRN (12:15)
[2016-10-21] MEDS: CLOPIDOGREL 75 MG TAB PO SCH (20:42)
[2016-10-21] MEDS: PRAVASTATIN SOD 40 MG TAB PO SCH (20:42)
[2016-10-21] MEDS: DOCUSATE SODIUM 50 MG/SENNA 8.6 MG TAB PO SCH (20:46)
[2016-10-22] VITALS (7 sets, daily range): BP systolic 118–127; BP diastolic 60–87; PULSE 64–90; RESP 18–20; TEMP 96.4–98.7; O2SAT 95–97
[2016-10-22] MEDS ORDERED: hydrOXYzine PAMOATE 25 MG CAP PO ONE (00:30)
[2016-10-22] MEDS: traMADol HCL 50 MG TAB PO SCH ×3 (02:08→22:14)
[2016-10-22] MEDS: SODIUM CHLORIDE 0.9% FLUSH 5 ML FLUSH FLUSH SCH ×2 (08:35→20:27)
[2016-10-22] MEDS: AZITHROMYCIN 250 MG TAB PO SCH (08:36)
[2016-10-22] MEDS: MELOXICAM 15 MG TAB PO SCH (08:36)
[2016-10-22] MEDS: ASPIRIN 325 MG TAB PO SCH (08:36)
[2016-10-22] MEDS: METOPROLOL TARTRATE 50 MG TAB PO SCH ×2 (08:36→20:27)
[2016-10-22] MEDS: SIMETHICONE 80 MG CHEWABLE TAB CHEW PRN ×2 (08:39→20:27)
[2016-10-22] MEDS: SODIUM CHLORIDE 0.65% NASAL SPRAY 45 ML BTL PRN (08:40)
--- NOTE | 2016-10-22 10:17 | HHI.FPPN ---
Subjective Remarks No acute issues overnight. Vitals are stable, patient remains afebrile. He notes that he has abdominal cramping and gas this morning. He denies any shortness of breath, fever, chills, nausea or vomiting. He is tolerating oral intake. Objective Vitals Vital Signs Date Time Temp Pulse Resp B/P Pulse Ox O2 Delivery O2 Flow Rate FiO2 10/22/16 08:00 96.4 89 20 118/87 97 10/22/16 05:27 98.4 64 18 126/76 97 10/22/16 03:08 16 10/22/16 01:40 98.7 75 18 127/68 96 10/21/16 20:49 97.8 64 18 120/62 96 10/21/16 20:49 94 10/21/16 15:54 97.9 89 17 118/62 95 10/21/16 11:29 97.4 75 17 109/63 94 I/O 10/21/16 10/21/16 10/21/16 10/22/16 10/22/16 10/22/16 07:00 15:00 23:00 07:00 15:00 23:00 Intake Total 600 ml Balance 600 ml Intake Oral 500 ml IV Total 100 ml # Voids 4 3 1 1 # Bowel Movements 5 1 3 Result Diagram: 10/21/16 0639 10/21/16 0639 Imaging Last Impressions Pelvis X-Ray 10/19/16 1316 Signed Impressions: Service Date/Time: Wednesday, October 19, 2016 14:49 - CONCLUSION: 1. No acute fracture or dislocation. 2. Status post left total hip arthroplasty. Enio Dejesus MD Head CT 10/19/16 1316 Signed Impressions: Service Date/Time: Wednesday, October 19, 2016 13:44 - CONCLUSION: 1. Mild to moderate periventricular and subcortical white matter small vessel ischemic changes bilaterally. 2. Mild diffuse cerebral atrophy. 3. Old lacunar infarcts within the right basal ganglia and left cerebellar hemisphere. 4. No acute infarct, acute hemorrhage, midline shift or extra-axial fluid collections. Enio Dejesus MD Chest X-Ray 10/19/16 1257 Signed Impressions: Service Date/Time: Wednesday, October 19, 2016 14:53 - CONCLUSION: 1. Scattered increased interstitial markings consistent with atelectasis and/or fibrotic scarring. 2. Cardiomegaly. Enio Dejesus MD Objective Remarks GENERAL: Overweight male laying in bed comfortably. SKIN: Warm and dry. No rashes or lesions. HEAD: Normocephalic. EYES: No scleral icterus. No injection or drainage. NECK: Supple, trachea midline. No JVD or lymphadenopathy. CARDIOVASCULAR: Regular rate and rhythm without murmurs, gallops, or rubs. RESPIRATORY: Breath sounds equal, clear bilaterally. No accessory muscle use. GASTROINTESTINAL: Abdomen soft, non-tender, nondistended. MUSCULOSKELETAL: No cyanosis, or edema. . A/P Assessment and Plan 75 yo male with PMH of A-fib, CAD, and severe OA was found in his home after falling two days prior. Patient found to have anemia, and was admitted for PNA and inability to care for himself. Discharge Planning Anticipate discharge to SNF pending placement. johanw Dr. Miguelito Kumar Problem List: (1) Fall Status: Acute Plan: Patient having multiple mechanical falls over the past year. The patient stayed on the floor for 2 days after his most recent fall. There was no LOC. - no signs of rhabdo - pelvic x-ray negative for fracture - PT recommends rehab (2) Elderly person living alone Status: Acute Plan: Patient is unable to care for himself. He has no family around. It is unsafe for him to return home. Currently awaiting placement at SNF. (3) Pneumonia Status: Acute Plan: 10/19 CXR shows scattered increased interstitial markings consistent with atelectasias and/or fibrotic scarring, cardiomegaly. Leukocytosis trending down from 13.5 to 11.4 today. DC Rocephin 1 g IV Q24 (10/19-10/21) - Continue azithromycin 500mg PO daily x 7 days (10/19- ) (4) Anemia Status: Chronic Plan: Microcytic anemia Hb on admission 9.8, previously 15 in February of 2016. Reports colonoscopy in his 50s. He states over the years he has given stool samples and they have been normal. He has been on tramadol and meloxicam chronically for is OA, so may have an ulcer or some gastritis vs ulcer. Hemoccult negative H/H stable (5) Hyperlipidemia Status: Chronic Plan: continue statin (6) Atrial fibrillation Status: Chronic Plan: continue metoprolol, plavix, ASA (7) FEN Status: Acute Plan: Fluids: None Electrolytes: currently wnl Nutrition: regular diet DVT PPx: SCD's Problem Qualifiers (1) Fall: Qualified Code: W19.XXXA - Fall, initial encounter (2) Pneumonia: Qualified Code: J18.9 - Pneumonia of both lungs due to infectious organism, unspecified part of lung (3) Anemia: Qualified Code: D64.9 - Anemia, unspecified type (4) Hyperlipidemia: Qualified Code: E78.5 - Hyperlipidemia, unspecified hyperlipidemia type (5) Atrial fibrillation: Qualified Code: I48.2 - Chronic atrial fibrillation Courtney Powell MD R2 Oct 22, 2016 10:17
[2016-10-22] MEDS: ENOXAPARIN SODIUM 40 MG/0.4 ML SYRINGE SQ SCH (14:38)
[2016-10-22] MEDS: PRAVASTATIN SOD 40 MG TAB PO SCH (20:27)
[2016-10-22] MEDS: DOCUSATE SODIUM 50 MG/SENNA 8.6 MG TAB PO SCH (20:27)
[2016-10-22] MEDS: CLOPIDOGREL 75 MG TAB PO SCH (20:27)
[2016-10-23 03:59] VITALS: BP 95/64; PULSE 83; RESP 20; TEMP 98.6; O2SAT 97
[2016-10-23] MEDS: traMADol HCL 50 MG TAB PO SCH ×3 (06:04→21:03)
[2016-10-23 07:30] VITALS: BP 116/67; PULSE 84; PULSE 92; RESP 16; TEMP 97.8; O2SAT 94; O2SAT 97
[2016-10-23] MEDS: AZITHROMYCIN 250 MG TAB PO SCH (09:05)
[2016-10-23] MEDS: ASPIRIN 325 MG TAB PO SCH (09:05)
[2016-10-23] MEDS: METOPROLOL TARTRATE 50 MG TAB PO SCH ×2 (09:05→21:02)
[2016-10-23] MEDS: MELOXICAM 15 MG TAB PO SCH (09:05)
[2016-10-23] MEDS: SODIUM CHLORIDE 0.9% FLUSH 5 ML FLUSH FLUSH SCH ×2 (09:05→21:00)
--- NOTE | 2016-10-23 09:17 | HHI.FPPN ---
Subjective Remarks No acute issues overnight. Vitals are stable, patient remains afebrile. He denies any chest pain, shortness of breath, fever, chills, nausea or vomiting. He has been ambulating with physical therapy, however his room is very small and he is not able to sit in a chair (because he doesn't have one) or ambulate around the room due to space limitation. He is getting tired and sore from laying down all the time. Otherwise he has no other concerns today. Objective Vitals Vital Signs Date Time Temp Pulse Resp B/P Pulse Ox O2 Delivery O2 Flow Rate FiO2 10/23/16 07:30 97.8 84 16 116/67 97 10/23/16 03:59 98.6 83 20 95/64 97 10/22/16 23:39 97.5 83 20 125/71 95 10/22/16 19:19 98.3 86 20 127/82 97 10/22/16 16:50 18 10/22/16 16:45 97.9 90 18 121/60 95 10/22/16 12:00 97.8 85 20 118/68 95 I/O 10/22/16 10/22/16 10/22/16 10/23/16 10/23/16 10/23/16 07:00 15:00 23:00 07:00 15:00 23:00 Intake Total 240 ml 480 ml Balance 240 ml 480 ml Intake Oral 240 ml 480 ml # Voids 1 1 3 # Bowel Movements 3 Result Diagram: 10/21/16 0639 10/21/16 0639 Imaging Last Impressions Pelvis X-Ray 10/19/16 1316 Signed Impressions: Service Date/Time: Wednesday, October 19, 2016 14:49 - CONCLUSION: 1. No acute fracture or dislocation. 2. Status post left total hip arthroplasty. Enio Dejesus MD Head CT 10/19/16 1316 Signed Impressions: Service Date/Time: Wednesday, October 19, 2016 13:44 - CONCLUSION: 1. Mild to moderate periventricular and subcortical white matter small vessel ischemic changes bilaterally. 2. Mild diffuse cerebral atrophy. 3. Old lacunar infarcts within the right basal ganglia and left cerebellar hemisphere. 4. No acute infarct, acute hemorrhage, midline shift or extra-axial fluid collections. Enio Dejesus MD Chest X-Ray 10/19/16 1257 Signed Impressions: Service Date/Time: Wednesday, October 19, 2016 14:53 - CONCLUSION: 1. Scattered increased interstitial markings consistent with atelectasis and/or fibrotic scarring. 2. Cardiomegaly. Enio Dejesus MD Objective Remarks GENERAL: Well-nourished, well-developed, pleasant male laying in bed comfortably. SKIN: Warm and dry. No rashes or lesions. HEAD: Normocephalic. EYES: No scleral icterus. No injection or drainage. NECK: Supple, trachea midline. No JVD or lymphadenopathy. CARDIOVASCULAR: Regular rate and rhythm without murmurs, gallops, or rubs. RESPIRATORY: Breath sounds equal, clear bilaterally. No accessory muscle use. GASTROINTESTINAL: Abdomen soft, non-tender, nondistended. MUSCULOSKELETAL: No cyanosis, or edema. . A/P Assessment and Plan 75 yo male with PMH of A-fib, CAD, and severe OA was found in his home after falling two days prior. Patient found to have anemia, and was admitted for PNA and inability to care for himself. Discharge Planning Anticipate discharge to SNF pending placement. dalia Kumar Problem List: (1) Fall Status: Acute Plan: Patient having multiple mechanical falls over the past year. The patient stayed on the floor for 2 days after his most recent fall. There was no LOC. - no signs of rhabdo - pelvic x-ray negative for fracture - PT recommends rehab (2) Elderly person living alone Status: Acute Plan: Patient is unable to care for himself. He has no family around. It is unsafe for him to return home. Currently awaiting placement at SNF. (3) Pneumonia Status: Acute Plan: 10/19 CXR shows scattered increased interstitial markings consistent with atelectasias and/or fibrotic scarring, cardiomegaly. Leukocytosis trending down, CBC pending today. DC Rocephin 1 g IV Q24 (10/19-10/21) - Continue azithromycin 500mg PO daily x 7 days (10/19- ) (4) Anemia Status: Chronic Plan: Microcytic anemia Hb on admission 9.8, previously 15 in February of 2016. Reports colonoscopy in his 50s. He states over the years he has given stool samples and they have been normal. He has been on tramadol and meloxicam chronically for is OA, so may have an ulcer or some gastritis vs ulcer. Hemoccult negative H/H stable (5) Hyperlipidemia Status: Chronic Plan: continue statin (6) Atrial fibrillation Status: Chronic Plan: continue metoprolol, plavix, ASA (7) FEN Status: Acute Plan: Fluids: None Electrolytes: currently wnl Nutrition: regular diet DVT PPx: SCD's, Lovenox 40mg SQ Q24H Problem Qualifiers (1) Fall: Qualified Code: W19.XXXA - Fall, initial encounter (2) Pneumonia: Qualified Code: J18.9 - Pneumonia of both lungs due to infectious organism, unspecified part of lung (3) Anemia: Qualified Code: D64.9 - Anemia, unspecified type (4) Hyperlipidemia: Qualified Code: E78.5 - Hyperlipidemia, unspecified hyperlipidemia type (5) Atrial fibrillation: Qualified Code: I48.2 - Chronic atrial fibrillation Courtney Powell MD R2 Oct 23, 2016 09:17
[2016-10-23 11:43] VITALS: BP_SYST 88; BP_SYST 92; BP_DIAS 45; BP_DIAS 58; PULSE 81; RESP 16; TEMP 97.6; O2SAT 97
[2016-10-23 12:00] VITALS: BP 101/60
[2016-10-23 12:20] LABS: HEMATOCRIT 29.4 % (39.0-51.0); MEAN CELL VOLUME 75.9 FL (80.0-100.0); MEAN CORPUSCULAR HEMOGLOBIN 23.5 PG (27.0-34.0); MEAN CORPUSCULAR HGB CONC 30.9 % (32.0-36.0); PLATELET COUNT 249 TH/MM3 (150-450); RED BLOOD COUNT 3.87 MIL/MM3 (4.50-5.90); RED CELL DISTRIBUTION WIDTH 19.6 % (11.6-17.2); WHITE BLOOD COUNT 7.2 TH/MM3 (4.0-11.0)
[2016-10-23 12:23] LABS: REVIEW FLAG FINAL
[2016-10-23] MEDS: ENOXAPARIN SODIUM 40 MG/0.4 ML SYRINGE SQ SCH (13:17)
[2016-10-23] MEDS: ACETAMINOPHEN 325 MG TAB PO PRN ×2 (13:17→19:05)
[2016-10-23 16:00] VITALS: BP 121/73; PULSE 84; RESP 20; TEMP 96; O2SAT 100
[2016-10-23] MEDS: DOCUSATE SODIUM 50 MG/SENNA 8.6 MG TAB PO SCH (21:02)
[2016-10-23] MEDS: PRAVASTATIN SOD 40 MG TAB PO SCH (21:02)
[2016-10-23] MEDS: CLOPIDOGREL 75 MG TAB PO SCH (21:02)
[2016-10-23 21:51] VITALS: BP 111/64; PULSE 87; RESP 18; TEMP 97.5; O2SAT 96
[2016-10-24 02:20] VITALS: BP 107/60; PULSE 70; RESP 18; TEMP 97.8; O2SAT 98
[2016-10-24 03:27] VITALS: BP 95/51; PULSE 96; RESP 18; TEMP 98.1; O2SAT 97
[2016-10-24] MEDS: ACETAMINOPHEN 325 MG TAB PO PRN (03:43)
[2016-10-24] MEDS: traMADol HCL 50 MG TAB PO SCH ×3 (06:36→22:00)
[2016-10-24] MEDS: SIMETHICONE 80 MG CHEWABLE TAB CHEW PRN (06:37)
[2016-10-24 08:00] VITALS: BP 104/58; PULSE 86; RESP 20; TEMP 97.4; O2SAT 97
[2016-10-24] MEDS: AZITHROMYCIN 250 MG TAB PO SCH (08:32)
[2016-10-24] MEDS: METOPROLOL TARTRATE 50 MG TAB PO SCH ×2 (08:32→20:45)
[2016-10-24] MEDS: ASPIRIN 325 MG TAB PO SCH (08:32)
[2016-10-24] MEDS: SODIUM CHLORIDE 0.9% FLUSH 5 ML FLUSH FLUSH SCH ×2 (08:32→21:00)
[2016-10-24] MEDS: MELOXICAM 15 MG TAB PO SCH (08:32)
[2016-10-24] MEDS: SODIUM CHLORIDE 0.65% NASAL SPRAY 45 ML BTL PRN (08:41)
[2016-10-24 12:00] VITALS: BP 115/69; PULSE 86; RESP 23; TEMP 98.6; O2SAT 96
--- NOTE | 2016-10-24 12:07 | HHI.FPPN ---
Subjective Remarks Overnight, FAITH. AF. Hypotensive to 95/50. C/o gas, requesting scheduled simethicone (not PRN). ROS otherwise neg- denies f/c, n/v, SOB/CP, abd/leg pain. Pt unsure who would be medical decision maker. He has two daughters and at least two ex-wives. When pressed, states 2nd ex- would be his choice for medical decision maker [place] and is concerned about calling them/paying bills. Would also like his computer from home Objective Vitals Vital Signs Date Time Temp Pulse Resp B/P Pulse Ox O2 Delivery O2 Flow Rate FiO2 10/24/16 08:00 97.4 86 20 104/58 97 10/24/16 03:27 98.1 96 18 95/51 97 10/24/16 02:20 97.8 70 18 107/60 98 10/23/16 22:03 18 10/23/16 21:51 97.5 87 18 111/64 96 10/23/16 20:05 18 10/23/16 16:00 96.0 84 20 121/73 100 10/23/16 12:00 101/60 I/O 10/23/16 10/23/16 10/23/16 10/24/16 10/24/16 10/24/16 07:00 15:00 23:00 07:00 15:00 23:00 Intake Total 480 ml 480 ml Balance 480 ml 480 ml Intake Oral 480 ml 480 ml # Voids 3 1 2 # Bowel Movements 1 Result Diagram: 10/23/16 1200 10/21/16 0639 Imaging Last Impressions Pelvis X-Ray 10/19/16 1316 Signed Impressions: Service Date/Time: Wednesday, October 19, 2016 14:49 - CONCLUSION: 1. No acute fracture or dislocation. 2. Status post left total hip arthroplasty. Enio Dejesus MD Head CT 10/19/16 1316 Signed Impressions: Service Date/Time: Wednesday, October 19, 2016 13:44 - CONCLUSION: 1. Mild to moderate periventricular and subcortical white matter small vessel ischemic changes bilaterally. 2. Mild diffuse cerebral atrophy. 3. Old lacunar infarcts within the right basal ganglia and left cerebellar hemisphere. 4. No acute infarct, acute hemorrhage, midline shift or extra-axial fluid collections. Enio Dejesus MD Chest X-Ray 10/19/16 1257 Signed Impressions: Service Date/Time: Wednesday, October 19, 2016 14:53 - CONCLUSION: 1. Scattered increased interstitial markings consistent with atelectasis and/or fibrotic scarring. 2. Cardiomegaly. Enio Dejesus MD Objective Remarks CONST: Adult male in NAD DERM: Warm and dry. HEENT: PERRL. MMM. Wears glasses. CV: RRR. RESP: Lungs CTAB. GI: Obese. NTND. +BS MSK: No cyanosis, or edema. . A/P Assessment and Plan 75y male with CAD, hx afib, and severe OA hospitalized 10/19/15 after falling and lying in own stool for two days before able to call EMS. Tx for fall, PNA, and inability to care for self Discharge Planning [place], discharge to SNF, pending placement. 10/23/15- Case left message for daughter, Primitivo Call, DW: Dr Kumar, Dr Rene Problem List: (1) Fall Status: Acute Plan: Patient having multiple mechanical falls over the past year. Stayed on the floor for 2 days after his most recent fall. No LOC. No rhabdo. Pelvic x- ray neg fx -PT daily, d/c to rehab. Has walker at home. (2) Elderly person living alone Status: Acute Plan: Unable to care for himself. No family around. Unsafe for him to return home. -Case assist with placement at SNF and help contact his living arrangements at mobile home for bills/prevent matthew while in hospital (3) Pneumonia Status: Acute Plan: CXR (10/19) scattered increased interstitial markings consistent with atelectasias and/or fibrotic scarring, cardiomegaly. Leukocytosis resolved. - Continue azithromycin 500mg PO daily x 7 days (10/19-10/26) - Have discontinued Rocephin (10/19-10/21) (4) Microcytic anemia Status: Acute Plan: Microcytic anemia. Admit Hgb 9.8, baseline 15. Last colonoscopy 20+ years ago. On tramadol and meloxicam for OA, consider gastritis vs ulcer vs other. Hemoccult neg. H/H stable. -Start famotidine 20mg BID to treat possible gastritis, continue at discharge, d /c x2 weeks (12/2015) -Monitor H/H -Consider outpatient iron studies (5) FEN Status: Acute Plan: Fluids: None Electrolytes: currently wnl Nutrition: regular diet DVT PPx: SCD's, Lovenox 40mg SQ Q24H GI: not indicated Chronic conditions: Hx Afib, in NSR: continue metoprolol, plavix, ASA Osteoarthritis: continue meloxicam 15mg daily, tramadol HCL 50mg TID HLD: continue statin Constipation: hitesh-Colace 2tab HS ASMREEN, simethicone 80mg TID SAMREEN (new meds, continue at discharge) (6) Hyperlipidemia Status: Chronic Plan: see FEN (7) Atrial fibrillation Status: Chronic Plan: see FEN (8) Osteoarthritis Status: Chronic Plan: see FEN (9) Constipation Status: Chronic Plan: see FEN Problem Qualifiers (1) Fall: Qualified Code: W19.XXXA - Fall, initial encounter (2) Pneumonia: Qualified Code: J18.9 - Pneumonia of both lungs due to infectious organism, unspecified part of lung (3) Hyperlipidemia: Qualified Code: E78.5 - Hyperlipidemia, unspecified hyperlipidemia type (4) Atrial fibrillation: Qualified Code: I48.2 - Chronic atrial fibrillation Jennifer Farley MD R1 Oct 24, 2016 12:07
[2016-10-24] MEDS: FAMOTIDINE 20 MG TAB PO SCH ×2 (12:58→20:43)
[2016-10-24] MEDS: SIMETHICONE 80 MG CHEWABLE TAB CHEW SCH ×2 (12:58→17:37)
[2016-10-24] MEDS: ENOXAPARIN SODIUM 40 MG/0.4 ML SYRINGE SQ SCH (12:58)
[2016-10-24 16:00] VITALS: BP 104/63; PULSE 79; RESP 23; TEMP 96.1; O2SAT 99
[2016-10-24 19:22] VITALS: BP 115/66; PULSE 82; RESP 18; TEMP 97.9; O2SAT 98
[2016-10-24] MEDS: PRAVASTATIN SOD 40 MG TAB PO SCH (20:43)
[2016-10-24] MEDS: DOCUSATE SODIUM 50 MG/SENNA 8.6 MG TAB PO SCH (20:43)
[2016-10-24] MEDS: CLOPIDOGREL 75 MG TAB PO SCH (20:43)
[2016-10-25 00:46] VITALS: BP 106/67; PULSE 85; RESP 18; TEMP 98.2; O2SAT 98
[2016-10-25 04:07] VITALS: BP 100/53; PULSE 98; RESP 18; TEMP 97.2; O2SAT 98
[2016-10-25] MEDS: traMADol HCL 50 MG TAB PO SCH ×3 (05:56→21:55)
[2016-10-25 08:34] LABS: HEMATOCRIT 34.4 % (39.0-51.0); MEAN CORPUSCULAR HGB CONC 30.2 % (32.0-36.0); PLATELET COUNT 295 TH/MM3 (150-450); RED BLOOD COUNT 4.52 MIL/MM3 (4.50-5.90); RED CELL DISTRIBUTION WIDTH 19.6 % (11.6-17.2); WHITE BLOOD COUNT 11.1 TH/MM3 (4.0-11.0)
[2016-10-25 08:42] LABS: REVIEW FLAG FINAL
[2016-10-25 08:56] VITALS: BP 116/62; PULSE 95; RESP 18; TEMP 96.7; O2SAT 96
[2016-10-25] MEDS: MELOXICAM 15 MG TAB PO SCH (08:58)
[2016-10-25] MEDS: ASPIRIN 325 MG TAB PO SCH (08:58)
[2016-10-25] MEDS: AZITHROMYCIN 250 MG TAB PO SCH (08:58)
[2016-10-25] MEDS: FAMOTIDINE 20 MG TAB PO SCH ×2 (08:58→21:55)
[2016-10-25] MEDS: METOPROLOL TARTRATE 50 MG TAB PO SCH ×2 (08:59→21:55)
[2016-10-25] MEDS: SIMETHICONE 80 MG CHEWABLE TAB CHEW SCH ×3 (08:59→17:55)
[2016-10-25] MEDS: SODIUM CHLORIDE 0.9% FLUSH 5 ML FLUSH FLUSH SCH ×2 (09:00→21:00)
--- NOTE | 2016-10-25 09:01 | HHI.FPPN ---
Subjective Remarks No acute issues overnight. Vitals are stable, patient remains afebrile. He is doing well this morning. He states that he has been doing some activity around his room and working with physical therapy. He denies any chest pain, shortness of breath, fever, chills, nausea or vomiting. He is tolerating by mouth and having regular bowel movements. Objective Vitals Vital Signs Date Time Temp Pulse Resp B/P Pulse Ox O2 Delivery O2 Flow Rate FiO2 10/25/16 08:56 96.7 95 18 116/62 96 10/25/16 04:07 97.2 98 18 100/53 98 10/25/16 00:46 98.2 85 18 106/67 98 10/24/16 19:22 97.9 82 18 115/66 98 10/24/16 16:00 96.1 79 23 104/63 99 10/24/16 12:00 98.6 86 23 115/69 96 I/O 10/24/16 10/24/16 10/24/16 10/25/16 10/25/16 10/25/16 07:00 15:00 23:00 07:00 15:00 23:00 Intake Total 480 ml 360 ml 480 ml Balance 480 ml 360 ml 480 ml Intake Oral 480 ml 360 ml 480 ml # Voids 1 4 1 2 # Bowel Movements 2 1 Result Diagram: 10/25/16 0734 10/21/16 0639 Imaging Last Impressions Pelvis X-Ray 10/19/16 1316 Signed Impressions: Service Date/Time: Wednesday, October 19, 2016 14:49 - CONCLUSION: 1. No acute fracture or dislocation. 2. Status post left total hip arthroplasty. Enio Dejesus MD Head CT 10/19/16 1316 Signed Impressions: Service Date/Time: Wednesday, October 19, 2016 13:44 - CONCLUSION: 1. Mild to moderate periventricular and subcortical white matter small vessel ischemic changes bilaterally. 2. Mild diffuse cerebral atrophy. 3. Old lacunar infarcts within the right basal ganglia and left cerebellar hemisphere. 4. No acute infarct, acute hemorrhage, midline shift or extra-axial fluid collections. Enio Dejesus MD Chest X-Ray 10/19/16 1257 Signed Impressions: Service Date/Time: Wednesday, October 19, 2016 14:53 - CONCLUSION: 1. Scattered increased interstitial markings consistent with atelectasis and/or fibrotic scarring. 2. Cardiomegaly. Enio Dejesus MD Objective Remarks CONST: Adult male, lying in bed, in NAD DERM: Warm and dry. HEENT: PERRL. MMM. Wears glasses. CV: RRR. No murmur. RESP: Lungs CTAB. No wheezes, rales, or rhonchi. GI: Obese. NTND. +BS MSK: No cyanosis, or edema. Lower extremities nontender to palpation bilaterally. A/P Assessment and Plan 75y male with CAD, hx afib, and severe OA hospitalized 10/19/15 after falling and lying in own stool for two days before able to call EMS. Tx for fall, PNA, and inability to care for self Discharge Planning Anticipate discharge to SNF/rehab pending placement. Case management assisting with placement, likely as soon as tomorrow. DW: Dr Kumar Problem List: (1) Fall Status: Acute Plan: Patient having multiple mechanical falls over the past year. Stayed on the floor for 2 days after his most recent fall. No LOC. No rhabdo. Pelvic x- ray neg fx -PT daily, d/c to rehab. Has walker at home. - OT (2) Elderly person living alone Status: Acute Plan: Unable to care for himself. No family around. Unsafe for him to return home. -Case assist with placement at SNF and help contact his living arrangements at mobile home for bills/prevent matthew while in hospital (3) Pneumonia Status: Acute Plan: CXR (10/19) scattered increased interstitial markings consistent with atelectasias and/or fibrotic scarring, cardiomegaly. Leukocytosis resolved. s/p Rocephin (10/19-10/21) - Continue azithromycin 500mg PO daily x 7 days (10/19-10/26) (4) Microcytic anemia Status: Acute Plan: Microcytic anemia. Admit Hgb 9.8, baseline 15. Last colonoscopy 20+ years ago. On tramadol and meloxicam for OA, consider gastritis vs ulcer vs other. Hemoccult neg. H/H stable. -Start famotidine 20mg BID to treat possible gastritis, continue at discharge, d /c x2 weeks (12/2015) -Monitor H/H -Consider outpatient iron studies (5) FEN Status: Acute Plan: Fluids: None Electrolytes: currently wnl Nutrition: regular diet DVT PPx: SCD's, Lovenox 40mg SQ Q24H Chronic conditions: Hx Afib, in NSR: continue metoprolol, plavix, ASA Osteoarthritis: continue meloxicam 15mg daily, tramadol HCL 50mg TID HLD: continue statin Constipation: hitesh-Colace 2tab HS SAMREEN, simethicone 80mg TID SAMREEN (6) Hyperlipidemia Status: Chronic Plan: see FEN (7) Atrial fibrillation Status: Chronic Plan: see FEN (8) Osteoarthritis Status: Chronic Plan: see FEN (9) Constipation Status: Chronic Plan: see FEN Problem Qualifiers (1) Fall: Qualified Code: W19.XXXA - Fall, initial encounter (2) Pneumonia: Qualified Code: J18.9 - Pneumonia of both lungs due to infectious organism, unspecified part of lung (3) Hyperlipidemia: Qualified Code: E78.5 - Hyperlipidemia, unspecified hyperlipidemia type (4) Atrial fibrillation: Qualified Code: I48.2 - Chronic atrial fibrillation Courtney Powell MD R2 Oct 25, 2016 09:01
[2016-10-25] MEDS: ENOXAPARIN SODIUM 40 MG/0.4 ML SYRINGE SQ SCH (12:46)
[2016-10-25 12:57] VITALS: BP_SYST 101; BP_SYST 110; BP_DIAS 55; BP_DIAS 77; PULSE 77; PULSE 86; RESP 16; RESP 18; TEMP 96.1; TEMP 97; O2SAT 98
[2016-10-25 17:50] VITALS: BP 90/53; PULSE 80; RESP 18; TEMP 96.9; O2SAT 98
[2016-10-25 20:00] VITALS: BP 128/75; PULSE 88; RESP 20; TEMP 96.4; O2SAT 100
[2016-10-25] MEDS: CLOPIDOGREL 75 MG TAB PO SCH (21:54)
[2016-10-25] MEDS: DOCUSATE SODIUM 50 MG/SENNA 8.6 MG TAB PO SCH (21:54)
[2016-10-25] MEDS: PRAVASTATIN SOD 40 MG TAB PO SCH (21:54)
[2016-10-26] VITALS: BP 98/78; PULSE 76; RESP 16; TEMP 98.7; O2SAT 97
[2016-10-26 04:00] VITALS: BP 103/61; PULSE 70; RESP 18; TEMP 97.4; O2SAT 98
[2016-10-26] MEDS: traMADol HCL 50 MG TAB PO SCH ×3 (05:43→16:15)
[2016-10-26 08:00] VITALS: BP 116/62; PULSE 87; RESP 19; TEMP 98; O2SAT 97
[2016-10-26 08:03] LABS: HEMATOCRIT 30.4 % (39.0-51.0); MEAN CELL VOLUME 75.2 FL (80.0-100.0); MEAN CORPUSCULAR HEMOGLOBIN 23.1 PG (27.0-34.0); MEAN CORPUSCULAR HGB CONC 30.7 % (32.0-36.0); PLATELET COUNT 277 TH/MM3 (150-450); RED BLOOD COUNT 4.05 MIL/MM3 (4.50-5.90); RED CELL DISTRIBUTION WIDTH 19.3 % (11.6-17.2); WHITE BLOOD COUNT 8.1 TH/MM3 (4.0-11.0)
[2016-10-26 08:08] LABS: REVIEW FLAG FINAL
[2016-10-26] MEDS: FAMOTIDINE 20 MG TAB PO SCH ×2 (08:54→21:04)
[2016-10-26] MEDS: AZITHROMYCIN 250 MG TAB PO SCH (08:54)
[2016-10-26] MEDS: MELOXICAM 15 MG TAB PO SCH (08:54)
[2016-10-26] MEDS: METOPROLOL TARTRATE 50 MG TAB PO SCH ×2 (08:54→21:04)
[2016-10-26] MEDS: ASPIRIN 325 MG TAB PO SCH (08:54)
[2016-10-26] MEDS: SIMETHICONE 80 MG CHEWABLE TAB CHEW SCH ×3 (08:55→16:15)
[2016-10-26] MEDS: SODIUM CHLORIDE 0.9% FLUSH 5 ML FLUSH FLUSH SCH ×4 (08:55→21:16)
[2016-10-26 11:30] VITALS: BP 110/46; PULSE 75; RESP 16; TEMP 98.5; O2SAT 96
--- NOTE | 2016-10-26 11:42 | HHI.FPPN ---
Subjective Remarks Overnight, no acute events. AF. Blood pressure borderline hypotensive at 100/ 80. Poor intake, no output recorded. C/o exacerbation of chronic back pain refractory to Tramadol and Meloxicam. Denies f/c, n/v ,SOB/CP Expresses understanding of discharge to SNF soon to increase strength and balance (Jennifer Farley MD R1) Objective Vitals Vital Signs Date Time Temp Pulse Resp B/P Pulse Ox O2 Delivery O2 Flow Rate FiO2 10/26/16 08:00 98.0 87 19 116/62 97 10/26/16 04:00 97.4 70 18 103/61 98 10/26/16 00:00 98.7 76 16 98/78 97 10/25/16 20:00 96.4 88 20 128/75 100 10/25/16 17:50 96.9 80 18 90/53 98 10/25/16 13:45 18 10/25/16 12:57 97.0 77 18 101/55 98 I/O 10/25/16 10/25/16 10/25/16 10/26/16 10/26/16 10/26/16 07:00 15:00 23:00 07:00 15:00 23:00 Intake Total 240 ml Balance 240 ml Intake Oral 240 ml IV Total 0 ml # Voids 2 3 1 3 # Bowel Movements 1 1 (Jennifer Farley MD R1) Result Diagram: 10/26/16 0640 Imaging Last Impressions Pelvis X-Ray 10/19/16 1316 Signed Impressions: Service Date/Time: Wednesday, October 19, 2016 14:49 - CONCLUSION: 1. No acute fracture or dislocation. 2. Status post left total hip arthroplasty. Enio Dejesus MD Head CT 10/19/16 1316 Signed Impressions: Service Date/Time: Wednesday, October 19, 2016 13:44 - CONCLUSION: 1. Mild to moderate periventricular and subcortical white matter small vessel ischemic changes bilaterally. 2. Mild diffuse cerebral atrophy. 3. Old lacunar infarcts within the right basal ganglia and left cerebellar hemisphere. 4. No acute infarct, acute hemorrhage, midline shift or extra-axial fluid collections. Enio Dejesus MD Chest X-Ray 10/19/16 1257 Signed Impressions: Service Date/Time: Wednesday, October 19, 2016 14:53 - CONCLUSION: 1. Scattered increased interstitial markings consistent with atelectasis and/or fibrotic scarring. 2. Cardiomegaly. Enio Dejesus MD Objective Remarks CONST: Adult male, lying in bed, in NAD. Smiles during exam. DERM: Warm and dry. HEENT: PERRL. MMM. Wears glasses. CV: RRR. No murmur. RESP: Lungs CTAB. No wheezes, rales, or rhonchi. GI: Obese. NTND. +BS MSK: No cyanosis, or edema. Lower extremities nontender to palpation bilaterally. NEURO: Grossly motor and sensory intact PSYCH: Appropriate affect. Good insight. (Jennifer Farley MD R1) A/P Assessment and Plan 75y male with CAD, hx afib, and severe OA hospitalized 10/19/15 after falling and lying in own stool for two days before able to call EMS. Tx for fall, PNA, and inability to care for self Discharge Planning Today, 10/26/16, pending case management assistance with SNF/rehab placement. SDW: Dr Kumar (Jennifer Farley MD R1) Attending Attestation Patient seen and examined. Case reviewed and discussed with the resident team. Agree with plan of care as discussed with me and documented in the resident note. (Garth Kumar MD) Problem List: (1) Fall Status: Acute Plan: Patient having multiple mechanical falls over the past year. Stayed on the floor for 2 days after his most recent fall. No LOC. No rhabdo. Pelvic x- ray neg fx -PT daily, d/c to rehab. Has walker at home. (2) Elderly person living alone Status: Chronic Plan: Unable to care for himself. No family around. Unsafe for him to return home. -Case assist with placement at SNF and help contact his living arrangements at mobile home for bills/prevent matthew while in hospital (3) Pneumonia Status: Resolved Plan: CXR (10/19) scattered increased interstitial markings consistent with atelectasias and/or fibrotic scarring, cardiomegaly. Leukocytosis resolved. -Discontinue azithromycin after AM dose 10/26/16 -Resolved s/p Rocephin (10/19-10/21) and Azithromycin (10/19-10/26) (4) Microcytic anemia Status: Chronic Plan: Microcytic anemia. Admit Hgb 9.8, baseline 15. Last colonoscopy 20+ years ago. On tramadol and meloxicam for OA, consider gastritis vs ulcer vs other. Hemoccult neg. H/H stable. -Famotidine 20mg BID to treat possible gastritis, continue at discharge, d/c x12 weeks (12/2015) -Monitor H/H -Consider outpatient iron studies (5) FEN Status: Acute Plan: Fluids: Per PO Electrolytes: currently wnl Nutrition: regular diet DVT PPx: SCD's, Lovenox 40mg SQ Q24H GI: Famotidine 20mg BID for gastritis/microcytic anemia Chronic conditions: HX AFIB, in NSR: continue metoprolol, plavix, ASA OSTEOARTHRITIS: continue meloxicam 15mg daily, tramadol HCL 50mg TID HLD: continue statin CONSTIPATION: Roselia-Colace 2tab HS SAMREEN, Simethicone 80mg TID SAMREEN, continue both at discharge (6) Hyperlipidemia Status: Chronic Plan: see FEN (7) Atrial fibrillation Status: Chronic Plan: see FEN (8) Osteoarthritis Status: Chronic Plan: see FEN (9) Constipation Status: Chronic Plan: see FEN (Jennifer Farley MD R1) Problem Qualifiers (1) Fall: Qualified Code: W19.XXXA - Fall, initial encounter (2) Pneumonia: Qualified Code: J18.9 - Pneumonia of both lungs due to infectious organism, unspecified part of lung (3) Hyperlipidemia: Qualified Code: E78.5 - Hyperlipidemia, unspecified hyperlipidemia type (4) Atrial fibrillation: Qualified Code: I48.2 - Chronic atrial fibrillation Jennifer Farley MD R1 Oct 26, 2016 11:42 Garth Kumar MD Oct 26, 2016 19:16
[2016-10-26] MEDS ORDERED: SIME80CH CHEW (11:46)
[2016-10-26] MEDS ORDERED: SENN1TAB PO (11:46)
--- NOTE | 2016-10-26 11:48 | HHI.DS ---
Discharge Summary Admission Date Oct 22, 2016 at 10:31 Discharge Date: Oct 26, 2016 Admitting Diagnosis sepsis/general weakness/frequent falls (1) Fall Diagnosis: Principal Plan: Patient having multiple mechanical falls over the past year. Stayed on the floor for 2 days after his most recent fall. No LOC. No rhabdo. Pelvic x- ray neg fx -PT daily, d/c to rehab. Has walker at home. -OT- rec short term OT while in rehab for tasks of daily living (2) Elderly person living alone Diagnosis: Principal Plan: Unable to care for himself. No family around. Unsafe for him to return home. -Case assist with placement at SNF and help contact his living arrangements at mobile home for bills/prevent matthew while in hospital (3) Pneumonia Diagnosis: Principal Plan: CXR (10/19) scattered increased interstitial markings consistent with atelectasias and/or fibrotic scarring, cardiomegaly. Leukocytosis resolved. -Discontinue azithromycin after AM dose 10/26/16 -Resolved s/p Rocephin (10/19-10/21) and Azithromycin (10/19-10/26) (4) Microcytic anemia Diagnosis: Principal Plan: Microcytic anemia. Admit Hgb 9.8, baseline 15. Last colonoscopy 20+ years ago. On tramadol and meloxicam for OA, consider gastritis vs ulcer vs other. Hemoccult neg. H/H stable. -Famotidine 20mg BID to treat possible gastritis, continue at discharge x1 month (discontinue Nov 2016) -Monitor H/H -Consider outpatient iron studies (5) FEN Diagnosis: Secondary Plan: Fluids: Per PO Electrolytes: currently wnl Nutrition: regular diet DVT PPx: SCD's, Lovenox 40mg SQ Q24H GI: Famotidine 20mg BID for gastritis/microcytic anemia x1 month Chronic conditions: HX AFIB, in NSR: continue metoprolol, plavix, ASA OSTEOARTHRITIS: continue meloxicam 15mg daily, tramadol HCL 50mg QID HLD: continue statin CONSTIPATION: Roselia-Colace 2tab HS SAMREEN, Simethicone 80mg TID SAMREEN, continue both at discharge (6) Hyperlipidemia Diagnosis: Secondary Plan: see FEN (7) Atrial fibrillation Diagnosis: Secondary Plan: see FEN (8) Osteoarthritis Diagnosis: Secondary Plan: see FEN (9) Constipation Diagnosis: Secondary Plan: see FEN Brief History 75y male with CAD, s/p CABG, aortic valve replacement, bilateral knee OA, and a- fib who presents to ED after sustaining a fall 2 days ago. Reports several falls this past year becuase "gets weak in the knees." Usually ambulates with a cane or a walker. Fell two days ago, could not get up. After stooling self, eventually able to call 911. Denies CP, SOB, or lightheadedness. Estranged from his children, two daughters. [facility], last seen over 6 months ago. Was supposed to see a pain management doctor on Tuesday. Pt admits that he cannot care for himself anymore. Saddened by this, but would like to live some where where he could be cared for. CBC/BMP: 10/26/16 0640 Significant Findings Laboratory Tests Test 10/23/16 10/25/16 10/26/16 12:00 07:34 06:40 Red Blood Count 3.87 MIL/MM3 4.05 MIL/MM3 (4.50-5.90) (4.50-5.90) Hemoglobin 9.1 GM/DL 10.4 GM/DL 9.3 GM/DL (13.0-17.0) (13.0-17.0) (13.0-17.0) Hematocrit 29.4 % 34.4 % 30.4 % (39.0-51.0) (39.0-51.0) (39.0-51.0) Mean Corpuscular Volume 75.9 FL 76.0 FL 75.2 FL (80.0-100.0) (80.0-100.0) (80.0-100.0) Mean Corpuscular Hemoglobin 23.5 PG 23.0 PG 23.1 PG (27.0-34.0) (27.0-34.0) (27.0-34.0) Mean Corpuscular Hemoglobin 30.9 % 30.2 % 30.7 % Concent (32.0-36.0) (32.0-36.0) (32.0-36.0) Red Cell Distribution Width 19.6 % 19.6 % 19.3 % (11.6-17.2) (11.6-17.2) (11.6-17.2) White Blood Count 11.1 TH/MM3 (4.0-11.0) Imaging Last Impressions Pelvis X-Ray 10/19/16 1316 Signed Impressions: Service Date/Time: Wednesday, October 19, 2016 14:49 - CONCLUSION: 1. No acute fracture or dislocation. 2. Status post left total hip arthroplasty. Enio Dejesus MD Head CT 10/19/16 1316 Signed Impressions: Service Date/Time: Wednesday, October 19, 2016 13:44 - CONCLUSION: 1. Mild to moderate periventricular and subcortical white matter small vessel ischemic changes bilaterally. 2. Mild diffuse cerebral atrophy. 3. Old lacunar infarcts within the right basal ganglia and left cerebellar hemisphere. 4. No acute infarct, acute hemorrhage, midline shift or extra-axial fluid collections. Enio Dejesus MD Chest X-Ray 10/19/16 1257 Signed Impressions: Service Date/Time: Wednesday, October 19, 2016 14:53 - CONCLUSION: 1. Scattered increased interstitial markings consistent with atelectasis and/or fibrotic scarring. 2. Cardiomegaly. Enio Dejesus MD PE at Discharge CONST: Adult male, lying in bed, in NAD. Smiles during exam. DERM: Warm and dry. HEENT: PERRL. MMM. Wears glasses. CV: RRR. No murmur. RESP: Lungs CTAB. No wheezes, rales, or rhonchi. GI: Obese. NTND. +BS MSK: No cyanosis, or edema. Lower extremities nontender to palpation bilaterally. NEURO: Grossly motor and sensory intact PSYCH: Appropriate affect. Good insight. Hospital Course 75y male with CAD s/p CABG and AVR, b/l knee OA, paroxymal afib, and hx of multiple falls, hospitalized 10/19-10/26 for treatment of fall without injury and PNA. Pt went "weak in the knees" and was down for two days before being able to reach 911. Xray pelvis and Head CT were negative for fracture or acute process. There did not appear to be cardiac component to fall- EKG unchanged from previous. CXR suggested possible PNA- treated with 7 days Azithromycin to cover for possible aspiration PNA (10/19-10/26). Pt alert, oriented, and very pleasant gentleman. Discharged in stable condition to SNF with medication changes and follow up as below. Pt Condition on Discharge: Stable Discharge Disposition: Discharge to SNF Discharge Instructions DIET: Follow Instructions for: As Tolerated, No Restrictions Activities you can perform: Regular-No Restrictions (Per PT recommendations) Follow up Referrals: PCP Follow-up - 1 Week New Medications: Famotidine (Famotidine) 20 Mg Tab 20 MG PO Q12HR Take 1 pill twice a day for 1 month #60 Ref 0 TAB Sennosides-Docusate Sodium (Senna Plus 8.6-50 mg) 1 Tab Tab 2 TAB PO HS #60 Ref 6 TAB Simethicone (Simethicone) 80 Mg Chw 80 MG CHEW TID #240 Ref 6 EA Continued Medications: Aspirin (Aspirin) 325 Mg Tab 325 MG PO DAILY #30 Ref 0 TAB Clopidogrel (Plavix) 75 Mg Tab 75 MG PO HS Blood Clot Prevention #30 Ref 0 TAB Meloxicam (Mobic) 15 Mg Tab 15 MG PO DAILY Arthritis pain Ref 0 TAB Metoprolol Tartrate (Metoprolol Tartrate) 50 Mg Tab 50 MG PO BID #60 Ref 0 TAB Simvastatin (Zocor) 20 Mg Tab 20 MG PO HS Cholesterol Management #30 Ref 0 TAB Tramadol (Tramadol) 50 Mg Tab 50 MG PO QID Pain Management Ref 0 TAB Discontinued Medications: Docusate Sodium (Colace) 100 Mg Cap 100 MG PO BID PRN Constipation #60 Ref 0 CAP Simethicone (Simethicone) 80 Mg Chw 80 MG CHEW TID PRN GAS RETENTION Ref 0 TAB Jennifer Farley MD R1 Oct 26, 2016 11:48
[2016-10-26] MEDS ORDERED: FAMO20TA2 PO (11:49)
[2016-10-26] MEDS: ENOXAPARIN SODIUM 40 MG/0.4 ML SYRINGE SQ SCH (12:09)
[2016-10-26 20:00] VITALS: BP 119/58; PULSE 80; RESP 20; TEMP 97; O2SAT 98
[2016-10-26] MEDS: DOCUSATE SODIUM 50 MG/SENNA 8.6 MG TAB PO SCH ×2 (21:00→21:04)
[2016-10-26] MEDS: PRAVASTATIN SOD 40 MG TAB PO SCH (21:04)
[2016-10-26] MEDS: CLOPIDOGREL 75 MG TAB PO SCH (21:04)
[2016-10-27] VITALS: BP 109/59; PULSE 84; RESP 16; TEMP 97.2; O2SAT 98
[2016-10-27] MEDS: traMADol HCL 50 MG TAB PO SCH ×4 (00:02→17:58)
[2016-10-27 04:00] VITALS: BP 108/58; PULSE 74; RESP 16; TEMP 96.9; O2SAT 95
[2016-10-27 08:00] VITALS: BP 104/58; PULSE 74; RESP 18; TEMP 98; O2SAT 96
[2016-10-27] MEDS: METOPROLOL TARTRATE 50 MG TAB PO SCH (08:34)
--- NOTE | 2016-10-27 08:48 | HHI.FPPN ---
Subjective Remarks No acute issues overnight. Vitals are stable, patient remains afebrile. He denies any chest pain, shortness of breath, fever, chills, nausea or vomiting. He is tolerating by mouth. He is having regular bowel movements. He did not work with physical therapy yesterday, but states that he did get up and ambulate around the floor. Objective Vitals Vital Signs Date Time Temp Pulse Resp B/P Pulse Ox O2 Delivery O2 Flow Rate FiO2 10/27/16 04:00 96.9 74 16 108/58 95 10/27/16 00:00 97.2 84 16 109/59 98 10/26/16 20:00 97.0 80 20 119/58 98 10/26/16 11:30 98.5 75 16 110/46 96 I/O 10/26/16 10/26/16 10/26/16 10/27/16 10/27/16 10/27/16 07:00 15:00 23:00 07:00 15:00 23:00 Intake Total 600 ml 240 ml Balance 600 ml 240 ml Intake Oral 600 ml 240 ml # Voids 3 4 4 # Bowel Movements 2 Result Diagram: 10/26/16 0640 Imaging Last Impressions Pelvis X-Ray 10/19/16 1316 Signed Impressions: Service Date/Time: Wednesday, October 19, 2016 14:49 - CONCLUSION: 1. No acute fracture or dislocation. 2. Status post left total hip arthroplasty. Enio Dejeuss MD Head CT 10/19/16 1316 Signed Impressions: Service Date/Time: Wednesday, October 19, 2016 13:44 - CONCLUSION: 1. Mild to moderate periventricular and subcortical white matter small vessel ischemic changes bilaterally. 2. Mild diffuse cerebral atrophy. 3. Old lacunar infarcts within the right basal ganglia and left cerebellar hemisphere. 4. No acute infarct, acute hemorrhage, midline shift or extra-axial fluid collections. Enio Dejesus MD Chest X-Ray 10/19/16 1257 Signed Impressions: Service Date/Time: Wednesday, October 19, 2016 14:53 - CONCLUSION: 1. Scattered increased interstitial markings consistent with atelectasis and/or fibrotic scarring. 2. Cardiomegaly. Enio Dejesus MD Objective Remarks CONST: Adult male, lying in bed, in NAD. Pleasant. DERM: Warm and dry. HEENT: PERRL. MMM. Wears glasses. CV: RRR. No murmur. RESP: Lungs CTAB. No wheezes, rales, or rhonchi. GI: Obese. NTND. +BS MSK: No cyanosis, or edema. Lower extremities nontender to palpation bilaterally. NEURO: Grossly motor and sensory intact PSYCH: Appropriate affect. Good insight. A/P Assessment and Plan 75y male with CAD, hx afib, and severe OA hospitalized 10/19/15 after falling and lying in own stool for two days before able to call EMS. Tx for fall, PNA, and inability to care for self Discharge Planning Anticipate discharge today pending SNF/rehab placement. Case management assisting. dw Dr. Kumar and Dr. Farley Problem List: (1) Fall Status: Acute Plan: Patient having multiple mechanical falls over the past year. Stayed on the floor for 2 days after his most recent fall. No LOC. No rhabdo. Pelvic x- ray neg fx -PT daily, d/c to rehab. Has walker at home. -OT- rec short term OT while in rehab for tasks of daily living (2) Elderly person living alone Status: Chronic Plan: Unable to care for himself. No family around. Unsafe for him to return home. -Case management assisting with placement at SNF/rehab (3) Microcytic anemia Status: Chronic Plan: Microcytic anemia. Admit Hgb 9.8, baseline 15. Last colonoscopy 20+ years ago. On tramadol and meloxicam for OA, consider gastritis vs ulcer vs other. Hemoccult neg. H/H stable. -Famotidine 20mg BID to treat possible gastritis, continue at discharge x1 month (discontinue Nov 2016) -Monitor H/H -Consider outpatient iron studies (4) FEN Status: Acute Plan: Fluids: Per PO Electrolytes: currently wnl Nutrition: regular diet DVT PPx: SCD's, Lovenox 40mg SQ Q24H GI: Famotidine 20mg BID for gastritis/microcytic anemia x1 month Chronic conditions: HX AFIB, in NSR: continue metoprolol, plavix, ASA OSTEOARTHRITIS: continue meloxicam 15mg daily, tramadol HCL 50mg QID HLD: continue statin CONSTIPATION: Roselia-Colace 2tab HS SAMREEN, Simethicone 80mg TID SAMREEN, continue both at discharge (5) Hyperlipidemia Status: Chronic Plan: see FEN (6) Atrial fibrillation Status: Chronic Plan: see FEN (7) Osteoarthritis Status: Chronic Plan: see FEN (8) Constipation Status: Chronic Plan: see FEN Problem Qualifiers (1) Fall: Qualified Code: W19.XXXA - Fall, initial encounter (2) Hyperlipidemia: Qualified Code: E78.5 - Hyperlipidemia, unspecified hyperlipidemia type (3) Atrial fibrillation: Qualified Code: I48.2 - Chronic atrial fibrillation Courtney Powell MD R2 Oct 27, 2016 08:48
[2016-10-27] MEDS: ASPIRIN 325 MG TAB PO SCH (09:00)
[2016-10-27] MEDS: SODIUM CHLORIDE 0.9% FLUSH 5 ML FLUSH FLUSH SCH ×2 (09:00→09:59)
[2016-10-27] MEDS: SIMETHICONE 80 MG CHEWABLE TAB CHEW SCH ×3 (09:56→17:58)
[2016-10-27] MEDS: FAMOTIDINE 20 MG TAB PO SCH (09:56)
[2016-10-27] MEDS: MELOXICAM 15 MG TAB PO SCH (09:57)
[2016-10-27 12:00] VITALS: BP 100/49; PULSE 77; RESP 18; TEMP 99.1; O2SAT 97
[2016-10-27] MEDS: ENOXAPARIN SODIUM 40 MG/0.4 ML SYRINGE SQ SCH (13:59)
[2016-10-27 16:00] VITALS: BP 110/59; PULSE 87; RESP 18; TEMP 96; O2SAT 98
[2016-10-27] MEDS ORDERED: TRAM50TA PO (18:02)
== END 2016-10-27 17:53 | DRG 195 ==
LOC: NEPE 12:49 → NEDA 15:43 → NEDH 19:28 → NEPGCP 10-20 12:00 → OBSVTOIN 10-22 10:31 → N05B 10-23 14:56
PROVIDERS: ADMIT Family Medicine; ATTEND Family Medicine
DX: J18.9 Pneumonia, unspecified organism (principal); I95.9 Hypotension, unspecified; I48.91 Unspecified atrial fibrillation; D50.9 Iron deficiency anemia, unspecified; M17.0 Bilateral primary osteoarthritis of knee; R53.1 Weakness; Z91.81 History of falling; Z60.2 Problems related to living alone; I25.10 Atherosclerotic heart disease of native coronary artery without angina pectoris; Z95.5 Presence of coronary angioplasty implant and graft; Z95.2 Presence of prosthetic heart valve; E78.5 Hyperlipidemia, unspecified; Z96.642 Presence of left artificial hip joint; W18.30XA Fall on same level, unspecified, initial encounter; H91.90 Unspecified hearing loss, unspecified ear; Z79.02 Long term (current) use of antithrombotics/antiplatelets; Z79.82 Long term (current) use of aspirin; K29.70 Gastritis, unspecified, without bleeding; K59.00 Constipation, unspecified; E66.9 Obesity, unspecified; Z68.26 Body mass index [BMI] 26.0-26.9, adult; G89.29 Other chronic pain; M54.9 Dorsalgia, unspecified
CPT/HCPCS: 70450; 71010; 72170; 80048; 80053; 81001; 82272; 82550; 83605; 83735; 84484; 85025; 85027; 85610; 85730; 87040; 93005; 96360; C9113; G0378; G8987-GP; G8988-GP; J0456; J0696; J1650; J2270; J7030; J7040; J7050; Q0177

== ENCOUNTER 2016-11-25 07:01 | Observation (INO) | payer MEDICARE, OTHER ==
[~2016-11-25] VITALS: Ht 175.3 cm; Wt 89.0 kg
[~2016-11-25 07:01] MED LIST changes: -ALEN70TA39 PO; -AMIT25 PO; -CHLO5 PO; -CLOP75 PO; -DOCU1CAP39 PO; +FAMO20TA2 PO; -HYDR-3533 PO; -METO50 PO; +METO50TA PO; -PEPT262T2 PO; +PLAV75TA29 PO; +SENN1TAB PO; +SIME80CH CHEW; -SIMV20 PO; -TRAM100T19 PO; +TRAM50TA PO; +ZOCO20TA PO; -[UNRECOGNIZED DRUG - REMARK] PO
[2016-11-25 07:04] VITALS: BP 146/75; PULSE 93; RESP 17; TEMP 98; O2SAT 98
--- NOTE | 2016-11-25 07:30 | PD ---
HPI Chief Complaint: Complaint Time Seen by Provider: 07:25 Travel History International Travel<30 days: No Contact w/Intl Traveler<30days: No Traveled to known affect area: No History of Present Illness HPI 76-year-old male with history of multiple medical issues, extensive cardiac history, please see nursing note for further information on medical history, presents to the ER today because he states that he has not been able to make a bowel movement or urinate in 3 days. He feels abdominal distention. He denies any vomiting, fevers, or any other symptoms. Modifying Factors: None Associated Signs & Symptoms: Difficulty urinating, constipation for 3 days Risk Factors: None PFSH Past Medical History Hx Anticoagulant Therapy: Yes Arthritis: Yes Asthma: No Atrial Fibrillation: Yes Autoimmune Disease: No Blood Disorders: No Anxiety: Yes Depression: Yes Heart Rhythm Problems: Yes (AFIB) Cancer: No Cardiac Catheterization: Yes (2 STENTS) Cardiovascular Problems: Yes High Cholesterol: No Chemotherapy: No Chest Pain: Yes (YEARS AGO) Congestive Heart Failure: No COPD: No Cerebrovascular Accident: Yes Diminished Hearing: Yes (EEK) Endocrine: No GERD: No Glaucoma: No Genitourinary: Yes Headaches: No Hepatitis: No Hiatal Hernia: No Hypertension: Yes Immune Disorder: No Kidney Stones: Yes Musculoskeletal: Yes (ODONTOID FX. 1991) Neurologic: Yes Psychiatric: Yes Reproductive: No Respiratory: No Immunizations Current: No (UNKNOWN) Migraines: Yes Myocardial Infarction: Yes Radiation Therapy: No Renal Failure: No Seizures: No Sickle Cell Disease: No Sleep Apnea: No Thyroid Disease: No Ulcer: No Tetanus Vaccination: < 5 Years Past Surgical History Abdominal Surgery: Yes AICD: No Appendectomy: No Arteriovenous Shunt: No Cardiac Surgery: Yes (BYPASS, AORTIC VALVE) Cholecystectomy: Yes Coronary Artery Bypass Graft: Yes (2 BYPASSES, AORTA REPLACED) Coronary Stent: Yes Ear Surgery: No Endocrine Surgery: No Eye Surgery: No Genitourinary Surgery: No Gynecologic Surgery: No Insulin Pump: No Joint Replacement: Yes (L HIP) Oral Surgery: No Pacemaker: No Thoracic Surgery: Yes (TONSILLECTOMY) Tonsillectomy: Yes Valve Replacement: Yes (AORTIC VALVE) Other Surgery: Yes Social History Alcohol Use: No Tobacco Use: No Substance Use: No Allergies-Medications (Allergen,Severity, Reaction): Coded Allergies: Codeine (Verified Adverse Reaction, Intermediate, Confusion, 11/25/16) Reported Meds & Prescriptions Reported Meds & Active Scripts Active Famotidine 20 Mg Tab 20 Mg PO Q12HR Take 1 pill twice a day for 1 month Senna Plus 8.6-50 mg (Sennosides-Docusate Sodium) 1 Tab Tab 2 Tab PO HS Simethicone 80 Mg Chw 80 Mg CHEW TID Reported Aspirin 325 Mg Tab 325 Mg PO DAILY Plavix (Clopidogrel Bisulfate) 75 Mg Tab 75 Mg PO HS Mobic (Meloxicam) 15 Mg Tab 15 Mg PO DAILY Metoprolol Tartrate 50 Mg Tab 50 Mg PO BID Zocor (Simvastatin) 20 Mg Tab 20 Mg PO HS Tramadol (Tramadol HCl) 50 Mg Tab 50 Mg PO QID Review of Systems Except as stated in HPI: all other systems reviewed are Neg Physical Exam Narrative GENERAL: Well-nourished, well-developed elderly white male patient in no acute distress. SKIN: Warm and dry. HEAD: Normocephalic. EYES: No scleral icterus. No injection or drainage. NECK: Supple, trachea midline. CARDIOVASCULAR: Regular rate and rhythm without murmurs, gallops, or rubs. RESPIRATORY: Breath sounds equal bilaterally. No accessory muscle use. GASTROINTESTINAL: Abdomen soft, non-tender, mildly distended. MUSCULOSKELETAL: No cyanosis, or edema. BACK: Nontender without obvious deformity. No CVA tenderness. Data Data Last Documented VS Vital Signs Date Time Temp Pulse Resp B/P Pulse Ox O2 Delivery O2 Flow Rate FiO2 11/25/16 07:15 81 17 11/25/16 07:04 98.0 146/75 98 Orders Urinalysis - C+S If Indicated (11/25/16 07:25) Abdomen, Flat & Upright (11/25/16 07:25) Urinary Catheter Insert/Apply (11/25/16 07:25) Complete Blood Count With Diff (11/25/16 07:30) Comprehensive Metabolic Panel (11/25/16 08:01) Place In Observation (11/25/16 09:34) Code Status (11/25/16 09:34) Vital Signs (Adult) Q4H (11/25/16 09:34) Activity Bed Rest With Brp (11/25/16 09:34) Diet Npo (11/25/16 Breakfast) Basic Metabolic Panel (Bmp) (11/26/16 06:00) Complete Blood Count With Diff (11/26/16 06:00) Scd Bilateral/Knee High JOAN.QSHIFT (11/25/16 09:34) Abdomen, Kub Only (11/26/16 06:00) Polyethylene Glycol (Miralax) (11/25/16 09:45) Bisacodyl Supp (Dulcolax Supp) (11/25/16 09:45) Labs Laboratory Tests Test 11/25/16 11/25/16 07:30 08:00 White Blood Count 13.4 TH/MM3 Red Blood Count 4.44 MIL/MM3 Hemoglobin 9.5 GM/DL Hematocrit 31.4 % Mean Corpuscular Volume 70.7 FL Mean Corpuscular Hemoglobin 21.4 PG Mean Corpuscular Hemoglobin 30.2 % Concent Red Cell Distribution Width 19.5 % Platelet Count 311 TH/MM3 Mean Platelet Volume 8.7 FL Neutrophils (%) (Auto) 75.2 % Lymphocytes (%) (Auto) 16.8 % Monocytes (%) (Auto) 7.4 % Eosinophils (%) (Auto) 0.2 % Basophils (%) (Auto) 0.4 % Neutrophils # (Auto) 10.1 TH/MM3 Lymphocytes # (Auto) 2.3 TH/MM3 Monocytes # (Auto) 1.0 TH/MM3 Eosinophils # (Auto) 0.0 TH/MM3 Basophils # (Auto) 0.0 TH/MM3 CBC Comment AUTO DIFF Differential Comment AUTO DIFF CONFIRMED Platelet Estimate NORMAL Platelet Morphology Comment NORMAL Ovalocytes 1+ Urine Color YELLOW Urine Turbidity HAZY Urine pH 7.5 Urine Specific [place] 1.019 Urine Protein NEG mg/dL Urine Glucose (UA) NEG mg/dL Urine Ketones NEG mg/dL Urine Occult Blood NEG Urine Nitrite NEG Urine Bilirubin NEG Urine Urobilinogen LESS THAN 2.0 MG/DL Urine Leukocyte Esterase NEG Urine RBC LESS THAN 1 /hpf Urine WBC 1 /hpf Urine Amorphous Sediment MOD Urine Bacteria OCC /hpf Urine Mucus FEW /lpf Microscopic Urinalysis Comment CULT NOT INDICATED Sodium Level 137 MEQ/L Potassium Level 4.0 MEQ/L Chloride Level 102 MEQ/L Carbon Dioxide Level 25.2 MEQ/L Anion Gap 10 MEQ/L Blood Urea Nitrogen 18 MG/DL Creatinine 1.01 MG/DL Estimat Glomerular Filtration 71 ML/MIN Rate Random Glucose 114 MG/DL Calcium Level 9.4 MG/DL Total Bilirubin 0.4 MG/DL Aspartate Amino Transf 16 U/L (AST/SGOT) Alanine Aminotransferase 16 U/L (ALT/SGPT) Alkaline Phosphatase 67 U/L Total Protein 6.5 GM/DL Albumin 3.2 GM/DL MDM Medical Decision Making Medical Screen Exam Complete: Yes Emergency Medical Condition: Yes Medical Record Reviewed: Yes Interpretation(s) Laboratory Tests Test 11/25/16 11/25/16 07:30 08:00 White Blood Count 13.4 TH/MM3 (4.0-11.0) Red Blood Count 4.44 MIL/MM3 (4.50-5.90) Hemoglobin 9.5 GM/DL (13.0-17.0) Hematocrit 31.4 % (39.0-51.0) Mean Corpuscular Volume 70.7 FL (80.0-100.0) Mean Corpuscular Hemoglobin 21.4 PG (27.0-34.0) Mean Corpuscular Hemoglobin 30.2 % Concent (32.0-36.0) Red Cell Distribution Width 19.5 % (11.6-17.2) Neutrophils (%) (Auto) 75.2 % (16.0-70.0) Neutrophils # (Auto) 10.1 TH/MM3 (1.8-7.7) Monocytes # (Auto) 1.0 TH/MM3 (0-0.9) Ovalocytes 1+ (NORMAL) Urine Turbidity HAZY (CLEAR) Urine Bacteria OCC /hpf (NONE) Urine Mucus FEW /lpf (OCC) Estimat Glomerular Filtration 71 ML/MIN (>89) Rate Random Glucose 114 MG/DL (74-106) Albumin 3.2 GM/DL (3.4-5.0) Last 24 hours Impressions Abdomen X-Ray 11/25/16 7765 Signed Impressions: Service Date/Time: November 07:46 - CONCLUSION: Bowel gas pattern suggestive of an ileus. Errol Kirkland Jr., MD Differential Diagnosis Inability to urinate and make a bowel movement for 3 daysconstipation versus BPH versus obstruction versus acute renal failure Narrative Course Patient is not acutely vomiting but x-ray does show ileus. Patient was given a Maria catheter and drains out 1800 cc of urine. Lab work did not indicate significant acute renal failure. At this point, my plan would be to admit the patient for observation for ileus. The case was discussed with Dr. Valentin for admission. Diagnosis Primary Impression: ILEUS, UNSPECIFIED Additional Impression: Urinary obstruction, unspecified Admitting Information Admitting Physician Requests: Admit Lukasz Hamilton MD Nov 25, 2016 07:30
[2016-11-25 07:45] LABS: AUTOMATED NEUTROPHIL # 10.1 TH/MM3 (1.8-7.7); BASOPHIL % 0.4 % (0.0-2.0); EOSINOPHIL % 0.2 % (0.0-4.0); HEMATOCRIT 31.4 % (39.0-51.0); LYMPH % 16.8 % (9.0-44.0); LYMPHOCYTE # 2.3 TH/MM3 (1.0-4.8); MEAN CELL VOLUME 70.7 FL (80.0-100.0); MEAN CORPUSCULAR HEMOGLOBIN 21.4 PG (27.0-34.0); MEAN CORPUSCULAR HGB CONC 30.2 % (32.0-36.0); MONO % 7.4 % (0.0-8.0); NEUT % 75.2 % (16.0-70.0); PLATELET COUNT 311 TH/MM3 (150-450); RED BLOOD COUNT 4.44 MIL/MM3 (4.50-5.90); RED CELL DISTRIBUTION WIDTH 19.5 % (11.6-17.2); WHITE BLOOD COUNT 13.4 TH/MM3 (4.0-11.0)
[2016-11-25 07:47] LABS: HEMO FLAGS AUTO DIFF
--- NOTE | 2016-11-25 07:56 | RADRPT ---
EXAM DATE/TIME: 11/25/2016 07:46 [facility] COMPARISON: ABDOMEN FLAT & UPRIGHT, January 09, 2013, 13:41. INDICATIONS : Evaluate for obstruction Constipation MEDICAL HISTORY : None. SURGICAL HISTORY : CABG. ENCOUNTER: Initial ACUITY: 3 days PAIN SCORE: 6/10 LOCATION: Bilateral Abdomen FINDINGS: Supine and upright views of the abdomen reveal dilated loops of gas-filled large and small bowel. Mul tiple air-fluid levels are seen on the upright view. These are both colonic and small bowel in nature . No pneumoperitoneum. A moderate amount of stool is seen within the rectal vault. Renal contours are obscured. Cholecystectomy clips are noted. A left hip prosthesis observed. Lung bases are clear. Hea rt is mildly enlarged. Prosthetic heart valve noted. CONCLUSION: Bowel gas pattern suggestive of an ileus. Errol Kirkland Jr., MD on November 25, 2016 at 7:53 Board Certified Radiologist. This report was verified electronically.
[2016-11-25 08:18] LABS: BACTERIA, URINE OCC /hpf; BLOOD, URINE NEG (NEG); COMMENT (UR) CULT NOT INDICATED; CULTURE IF INDICATED CULT NOT INDICATED; GLUCOSE,URINE NEG (NEG); KETONE, URINE NEG (NEG); MUCUS URINE FEW /lpf (OCC); NITRITE,URINE NEG (NEG); PH, URINE 7.5 (5.0-8.5); URINE COLOR YELLOW (YELLW/STRAW)
[2016-11-25 08:24] LABS: OVALOCYTES 1+ (NORMAL); PLATELET ESTIMATE SMEAR NORMAL (NORMAL); PLATELET MORPHOLOGY NORMAL (NORMAL); SCAN/DIFF AUTO DIFF CONFIRMED
[2016-11-25 08:53] LABS: ALT (GPT) 16 U/L (12-78); ANION GAP 10 MEQ/L (5-15); AST (GOT) 16 U/L (15-37); BICARBONATE 25.2 MEQ/L (21.0-32.0); BLOOD UREA NITROGEN 18 MG/DL (7-18); CHLORIDE 102 MEQ/L (98-107); GLOMERULAR FILTRATION RATE 71 ML/MIN (>89); SODIUM (NA) 137 MEQ/L (136-145)
[2016-11-25 08:55] LABS: ALKALINE PHOSPHATASE 67 U/L (45-117); TOTAL BILIRUBIN ADULT 0.4 MG/DL (0.2-1.0)
[2016-11-25] MEDS ORDERED: BISACODYL 10 MG SUPP RECTAL ONE (09:45)
[2016-11-25] MEDS ORDERED: POLYETHYLENE GLYCOL 17 GM PKG PO ONE (09:45)
[2016-11-25 10:18] VITALS: BP 118/66; PULSE 82; RESP 16; O2SAT 99
[2016-11-25 12:49] VITALS: BP 126/66; PULSE 83; RESP 17; TEMP 97.8; O2SAT 99
[2016-11-25 13:37] VITALS: BP 108/58; PULSE 88; RESP 17; O2SAT 98
--- NOTE | 2016-11-25 15:08 | HHI.HP ---
[facility] Ad[facility] Diagnosis urinary outflow obstruction/ileus Diagnoses: Chief Complaint: constipation and cannot urinate for 5 days Travel History International Travel<30 Days: No Contact w/Intl Traveler <30 Da: No Traveled to Known Affected Are: No History of Present Illness This is a 76-year-old male with history of diverticulitis, coronary artery disease, atrial fibrillation, dyslipidemia presented with constipation and inability to urinate for one week. Per patient, he has been in his usual state of health until 5 days ago when he had progressive constipation, not able to move his bowels at all. Allegedly, he also has not urinated for the last 4-5 days, oral intake has decreased because he has been constipated. Allegedly, he hasn't eaten for the last 4 days and has not been drinking enough. There is no note of vomiting but with mild nausea. He has been passing gas, last was about 5 minutes ago. Patient has mild bilateral lower quadrant abdominal pain, nonradiating, described as colicky. Afebrile. No urinary symptoms like frequency, urgency or dysuria. At the emergency department, a Maria catheter was inserted and 1800 cc of urine was drained. No hematuria. Patient denies any headache, cough, chest pain, shortness of breath. Of note, patient was in the hospital in October after a fall, discharged to [facility] and discharged from rehabilitation November 13. Review of Systems ROS Limitations: Other (All other pertinent systems were reviewed and are negative.) Past Family Social History Past Medical History Diverticulitis CAD with stent placement A-Fib Hyperlipidemia Past Surgical History left hip replacement lap toan Reported Medications Famotidine 20 Mg Tab 20 Mg PO Q12HR Take 1 pill twice a day for 1 month Senna Plus 8.6-50 mg (Sennosides-Docusate Sodium) 1 Tab Tab 2 Tab PO HS Simethicone 80 Mg Chw 80 Mg CHEW TID Aspirin 325 Mg Tab 325 Mg PO DAILY Plavix (Clopidogrel Bisulfate) 75 Mg Tab 75 Mg PO HS Mobic (Meloxicam) 15 Mg Tab 15 Mg PO DAILY Metoprolol Tartrate 50 Mg Tab 50 Mg PO BID Zocor (Simvastatin) 20 Mg Tab 20 Mg PO HS Tramadol (Tramadol HCl) 50 Mg Tab 50 Mg PO QID Allergies: Coded Allergies: Codeine (Verified Adverse Reaction, Intermediate, Confusion, 11/25/16) Family History One child with marfans mother passed of pancreatic ca father unknown medical history Social History denies x3 lives alone Physical Exam Vital Signs Vital Signs Date Time Temp Pulse Resp B/P Pulse Ox O2 Delivery O2 Flow Rate FiO2 11/25/16 13:37 88 17 108/58 98 Room Air 11/25/16 12:49 97.8 83 17 126/66 99 Room Air 11/25/16 10:18 82 16 118/66 99 Room Air 11/25/16 07:15 81 17 11/25/16 07:04 98.0 93 17 146/75 98 Physical Exam GENERAL: Not in acute distress, well-nourished. Appears weak. HEAD: Atraumatic. Normocephalic. No temporal or scalp tenderness. EYES: PERRL, full EOMs, no jaundice, nonicteric, pink conjunctivae without injection, moist mucosa ENT: Nose without bleeding, purulent drainage. TAirway patent. NECK: Trachea midline, no mass, no obvious thyromegaly. CARDIOVASCULAR: Regular rate and rhythm without murmurs, gallops, or rubs. RESPIRATORY: Poor breath, decreased breath sounds bilaterally. GASTROINTESTINAL: Abdomen soft, normal bowel sounds, bowel sounds are present, non-tender, mildly distended, Maria catheter in place, yellow urine with no hematuria. MUSCULOSKELETAL: Extremities without clubbing, cyanosis, or edema. INTEGUMENTARY: Warm and dry, no rash of generalized distribution. NEUROLOGICAL: Awake, alert, oriented 3. No obvious cranial nerve deficits. Moves all 4 extremities, muscle strength testing 5 over 5. Motor and sensory grossly within normal limits. .Supple neck, no meningeal signs. Grossly negative cerebellar examination. No focal neurologic deficits. PSYCHIATRIC: Normal mood, appropriate affect. Laboratory Laboratory Tests Test 11/25/16 11/25/16 07:30 08:00 White Blood Count 13.4 Red Blood Count 4.44 Hemoglobin 9.5 Hematocrit 31.4 Mean Corpuscular Volume 70.7 Mean Corpuscular Hemoglobin 21.4 Mean Corpuscular Hemoglobin 30.2 Concent Red Cell Distribution Width 19.5 Platelet Count 311 Mean Platelet Volume 8.7 Neutrophils (%) (Auto) 75.2 Lymphocytes (%) (Auto) 16.8 Monocytes (%) (Auto) 7.4 Eosinophils (%) (Auto) 0.2 Basophils (%) (Auto) 0.4 Neutrophils # (Auto) 10.1 Lymphocytes # (Auto) 2.3 Monocytes # (Auto) 1.0 Eosinophils # (Auto) 0.0 Basophils # (Auto) 0.0 CBC Comment AUTO DIFF Differential Comment AUTO DIFF CONFIRMED Platelet Estimate NORMAL Platelet Morphology Comment NORMAL Ovalocytes 1+ Urine Color YELLOW Urine Turbidity HAZY Urine pH 7.5 Urine Specific [place] 1.019 Urine Protein NEG Urine Glucose (UA) NEG Urine Ketones NEG Urine Occult Blood NEG Urine Nitrite NEG Urine Bilirubin NEG Urine Urobilinogen LESS THAN 2.0 Urine Leukocyte Esterase NEG Urine RBC LESS THAN 1 Urine WBC 1 Urine Amorphous Sediment MOD Urine Bacteria OCC Urine Mucus FEW Microscopic Urinalysis Comment CULT NOT INDICATED Sodium Level 137 Potassium Level 4.0 Chloride Level 102 Carbon Dioxide Level 25.2 Anion Gap 10 Blood Urea Nitrogen 18 Creatinine 1.01 Estimat Glomerular Filtration 71 Rate Random Glucose 114 Calcium Level 9.4 Total Bilirubin 0.4 Aspartate Amino Transf 16 (AST/SGOT) Alanine Aminotransferase 16 (ALT/SGPT) Alkaline Phosphatase 67 Total Protein 6.5 Albumin 3.2 Result Diagram: 11/25/16 0730 11/25/16 0800 Imaging Last Impressions Abdomen X-Ray 11/25/16 0725 Signed Impressions: Service Date/Time: November 07:46 - CONCLUSION: Bowel gas pattern suggestive of an ileus. Errol Kirkland Jr., MD Assessment and Plan Problem List: (1) Urinary obstruction, unspecified ICD Code: N13.9 Status: Acute (2) Atrial fibrillation ICD Code: I48.91 Status: Chronic (3) Constipation ICD Code: K59.00 Status: Chronic (4) Obstipation ICD Code: K59.00 Status: Acute Assessment and Plan This is a 75-year-old male with history of coronary artery disease, atrial fibrillation presented with constipation and inability to urinate Constipation, possibly obstipation-abdominal x-ray personally reviewed showed ileus, patient is nauseated but not vomiting, positive bowel sounds. We'll give MiraLAX, magnesium citrate and do an enema. If no resolution, consult general surgery, might need NG tube insertion. Currently, patient is not vomiting, hold off on NG tube. Recheck abdominal x-ray tomorrow. If patient passes stools, recommend starting patient on Metamucil daily. Difficulty to urinate-no history of BPH, patient had 1800 cc urine output after Maria catheter insertion, check ultrasound of the kidneys. Start Flomax. Allegedly no urine output for the last 4 days, I don't buy it, no azotemia or renal failure. Monitor urine output. Leukocytosis-likely stress-induced, monitor, no obvious source of infection, urinalysis unremarkable Anemia-microcytic, could be from iron deficiency-check iron panel. History of coronary artery disease, atrial fibrillation-continue metoprolol, statins, Plavix, aspirin DVT prophylaxis: Benjamin Recio MD Nov 25, 2016 15:08
[2016-11-25] MEDS ORDERED: MAGNESIUM CITRATE SOLN 300 ML BTL PO ONE (16:00)
[2016-11-25] MEDS ORDERED: SOD PHOSPHATE/SOD BIPHOSPHATE (ADULT) ENEMA 133ML PR ONE (17:00)
[2016-11-25 17:16] VITALS: BP 129/61; PULSE 95; RESP 20; O2SAT 97
--- NOTE | 2016-11-25 17:16 | RADRPT ---
EXAM DATE/TIME: 11/25/2016 16:06 [facility] COMPARISON: CT ABDOMEN & PELVIS W CONTRAST, January 09, 2013, 16:09. INDICATIONS : Dysuria. MEDICAL HISTORY : Hypertension. Diverticulitis. Renal calculi. Hearing loss. Cervical fracture. Cerebrovascular acciden t. Migraine. Anticoagulant therapy. Afib. Arthritis. Depression. Anxiety. Measles. Blood transfusion. SURGICAL HISTORY : Tonsillectomy. CABG. Cholecystectomy. Aortic valve replacement. Cardiac catheterization. Coronary art bessie stent. Ankle reconstruction surgery. Left hip replacement. ENCOUNTER: Initial ACUITY: 1 day PAIN SCORE: 10/10 LOCATION: Bilateral flank MEASUREMENTS: RIGHT KIDNEY: 10.4 x 6.5 x 5.8 cm LEFT KIDNEY: 11.1 x 6.1 x 4.8 cm FINDINGS: RIGHT KIDNEY: Renal cortex is normal in thickness and echotexture. No hydronephrosis, stone, or mass. Small, 1 cm cyst in the midpole cortex. LEFT KIDNEY: Renal cortex is normal in thickness and echotexture. Multiple discrete cystic structures in the renal pelvis I believe represent parapelvic cysts as identified on the prior 2012 CT scan. There are also some nonspecific echogenic foci within the renal pelvis which may represent small, nonobstructing isis culi. BLADDER: Decompressed with a Maria catheter. CONCLUSION: 1. I believe there are parapelvic cysts in the left kidney without hydronephrosis. 2. Possible nonobstructing punctate renal calculi in the left renal collecting system. 3. Benign-appearing, 1 cm cortical cyst in the midpole of the right kidney. Right kidney is otherwise sonographically normal. 4. Urinary bladder is decompressed with a Maria catheter. Juan Ramon Rose MD on November 25, 2016 at 17:08 Board Certified Radiologist. This report was verified electronically.
[2016-11-25] MEDS: TAMSULOSIN HCL 0.4 MG CAP PO SCH (17:40)
[2016-11-25] MEDS: ENOXAPARIN SODIUM 40 MG/0.4 ML SYRINGE SQ SCH (17:40)
[2016-11-25] MEDS: SIMETHICONE 80 MG CHEWABLE TAB CHEW SCH (17:40)
[2016-11-25] MEDS: SODIUM CHLOR 0.9% 1000 ML INJ 1,000 ML IV SCH (17:41)
[2016-11-25] MEDS ORDERED: traMADol HCL 50 MG TAB PO SCH (18:00)
[2016-11-25] MEDS ORDERED: ENOXAPARIN SODIUM 30 MG/0.3 ML SYRINGE SQ SCH (18:00)
[2016-11-25] MEDS ORDERED: traMADol HCL 50 MG TAB PO PRN (21:13)
[2016-11-25] MEDS: CLOPIDOGREL 75 MG TAB PO SCH (21:18)
[2016-11-25] MEDS: DOCUSATE SODIUM 50 MG/SENNA 8.6 MG TAB PO SCH (21:18)
[2016-11-25] MEDS: METOPROLOL TARTRATE 50 MG TAB PO SCH (21:18)
[2016-11-25] MEDS: PRAVASTATIN SOD 40 MG TAB PO SCH (21:19)
[2016-11-25] MEDS: FAMOTIDINE 20 MG TAB PO SCH (21:19)
[2016-11-25 21:51] VITALS: BP 159/73; PULSE 96; RESP 20; TEMP 98.2; O2SAT 95
[2016-11-25] MEDS: traMADol HCL 50 MG TAB PO PRN (22:29)
[2016-11-26 00:54] VITALS: BP 103/55; PULSE 77; RESP 19; TEMP 98.2; O2SAT 94
[2016-11-26] MEDS: SODIUM CHLOR 0.9% 1000 ML INJ 1,000 ML IV SCH ×2 (02:24→16:24)
[2016-11-26 04:46] VITALS: BP 99/57; PULSE 86; RESP 19; TEMP 98.2; O2SAT 97
[2016-11-26 07:07] LABS: AUTOMATED NEUTROPHIL # 7.8 TH/MM3 (1.8-7.7); BASOPHIL % 0.3 % (0.0-2.0); EOSINOPHIL % 0.2 % (0.0-4.0); HEMATOCRIT 27.2 % (39.0-51.0); LYMPH % 19.9 % (9.0-44.0); LYMPHOCYTE # 2.2 TH/MM3 (1.0-4.8); MEAN CORPUSCULAR HEMOGLOBIN 21.4 PG (27.0-34.0); MEAN CORPUSCULAR HGB CONC 30.5 % (32.0-36.0); MONO % 9.2 % (0.0-8.0); NEUT % 70.4 % (16.0-70.0); PLATELET COUNT 205 TH/MM3 (150-450); RED BLOOD COUNT 3.88 MIL/MM3 (4.50-5.90); RED CELL DISTRIBUTION WIDTH 18.7 % (11.6-17.2); WHITE BLOOD COUNT 11.1 TH/MM3 (4.0-11.0)
[2016-11-26 07:12] LABS: HEMO FLAGS AUTO DIFF
[2016-11-26 07:23] VITALS: BP 113/66; PULSE 85; RESP 18; TEMP 97.3; O2SAT 95
[2016-11-26 07:38] LABS: ANION GAP 9 MEQ/L (5-15); BICARBONATE 26.2 MEQ/L (21.0-32.0); BLOOD UREA NITROGEN 16 MG/DL (7-18); CHLORIDE 100 MEQ/L (98-107); FERRITIN 12 NG/ML (26-388); GLOMERULAR FILTRATION RATE 91 ML/MIN (>89); POTASSIUM 3.9 MEQ/L (3.5-5.1); SODIUM (NA) 135 MEQ/L (136-145); TRANSFERRIN IRON PROFILE 272 MG/DL (200-360)
[2016-11-26 07:47] LABS: SCAN/DIFF AUTO DIFF CONFIRMED
--- NOTE | 2016-11-26 08:01 | RADRPT ---
EXAM DATE/TIME: 11/26/2016 07:41 [facility] COMPARISON: ABDOMEN FLAT & UPRIGHT, November 25, 2016, 7:46. INDICATIONS : Constipation, Ileus. MEDICAL HISTORY : None. SURGICAL HISTORY : CABG. ENCOUNTER: Initial ACUITY: 3 days PAIN SCORE: 4/10 LOCATION: Abdomen FINDINGS: Clips noted in the right upper quadrant prior cholecystectomy. The left hip prosthesis in place with anterior compression of probable T12. Bowel distribution is air throughout the colon and in loops of small bowel not disproportionate. This is nonspecific and may represent ileus pattern CONCLUSION: Stable abdomen bowel gas pattern suggesting ileus Manpreet Monterroso MD on November 26, 2016 at 7:58 Board Certified Radiologist. This report was verified electronically.
[2016-11-26] MEDS: FAMOTIDINE 20 MG TAB PO SCH ×2 (09:00→21:00)
[2016-11-26] MEDS: MELOXICAM 15 MG TAB PO SCH (09:00)
[2016-11-26] MEDS: ASPIRIN 325 MG TAB PO SCH (09:00)
[2016-11-26] MEDS: SIMETHICONE 80 MG CHEWABLE TAB CHEW SCH ×3 (09:00→17:44)
[2016-11-26] MEDS: TAMSULOSIN HCL 0.4 MG CAP PO SCH (09:00)
[2016-11-26] MEDS: METOPROLOL TARTRATE 50 MG TAB PO SCH ×2 (09:00→21:00)
--- NOTE | 2016-11-26 10:14 | HHI.PR ---
Subjective Remarks Follow-up for constipation. The patient states that yesterday evening he began having a long, large BM. He feels like he's finally cleaned out. Abdominal pain and bloating have significantly improved. Tolerating diet. He states he takes stool softeners and fiber supplementation at home, however he's recently increased the amount of bread he's been eating. He has had problems urinating with constipation before, he has never had any difficulty urinating when he wasn 't constipated. Objective Vitals Vital Signs Date Time Temp Pulse Resp B/P Pulse Ox O2 Delivery O2 Flow Rate FiO2 11/26/16 07:23 97.3 85 18 113/66 95 11/26/16 04:46 98.2 86 19 99/57 97 11/26/16 00:54 98.2 77 19 103/55 94 11/25/16 21:51 98.2 96 20 159/73 95 11/25/16 17:16 95 20 129/61 97 Room Air 11/25/16 13:37 88 17 108/58 98 Room Air 11/25/16 12:49 97.8 83 17 126/66 99 Room Air 11/25/16 10:18 82 16 118/66 99 Room Air I/O 11/25/16 11/25/16 11/25/16 11/26/16 11/26/16 11/26/16 07:00 15:00 23:00 07:00 15:00 23:00 Output Total 500 ml Balance -500 ml Output Urine Total 500 ml # Voids 1 # Bowel Movements 0 Result Diagram: 11/26/16 0621 11/26/16 0621 Imaging Last Impressions Abdomen X-Ray 11/26/16 0600 Signed Impressions: Service Date/Time: Saturday, November 26, 2016 07:41 - CONCLUSION: Stable abdomen bowel gas pattern suggesting ileus Manpreet Monterroso MD Renal Ultrasound 11/25/16 0000 Signed Impressions: Service Date/Time: November 16:06 - CONCLUSION: 1. I believe there are parapelvic cysts in the left kidney without hydronephrosis. 2. Possible nonobstructing punctate renal calculi in the left renal collecting system. 3. Benign-appearing, 1 cm cortical cyst in the midpole of the right kidney. Right kidney is otherwise sonographically normal. 4. Urinary bladder is decompressed with a Maria catheter. Juan Ramon Rose MD Objective Remarks GENERAL: Well-developed well-nourished. In no acute distress. Eating breakfast. SKIN: Warm and dry. No lesions noted. HEENT: Normocephalic. Pupils equal and round. Mucous membranes pink and moist. CARDIOVASCULAR: Regular rate and rhythm. No murmur appreciated. RESPIRATORY: No accessory muscle use. Clear to auscultation. Breath sounds equal bilaterally. GASTROINTESTINAL: Abdomen soft, mild generalized TTP, nondistended. Bowel sounds x4. MUSCULOSKELETAL: No obvious deformities. No clubbing or cyanosis. No edema. NEUROLOGICAL: Awake and alert. No focal neurological deficits. Moves upper and lower extremities spontaneously. Normal speech. PSYCHIATRIC: Appropriate mood and affect; insight and judgment normal. A/P Problem List: (1) Urinary obstruction, unspecified ICD Code: N13.9 Status: Acute (2) Atrial fibrillation ICD Code: I48.91 Status: Chronic (3) Constipation ICD Code: K59.00 Status: Resolved (4) Obstipation ICD Code: K59.00 Status: Resolved Assessment and Plan This is a 75-year-old male with history of coronary artery disease, atrial fibrillation presented with constipation and inability to urinate Constipation, possibly obstipation-abdominal x-ray's showing bowel gas patterns suggesting ileus. Given MiraLAX, magnesium citrate, and enema with positive BM and resolution of symptoms. Continue stool softeners and fiber supplementation as outpatient. Continue home simethicone for bloating. Difficulty to urinate-no history of BPH, patient had 1800 cc urine output after Maria catheter insertion. Checked ultrasound of the kidneys which showed cyst, no hydronephrosis, and decompressed urinary bladder. Remove Maria catheter and attempted void trial. Continue Flomax. Monitor urine output. Leukocytosis-likely stress-induced, monitor, no obvious source of infection, urinalysis unremarkable. Improving. Anemia-microcytic. Check iron panel, shows iron deficiency. Needs iron supplementation, caution with constipation. PCP follow-up. History of coronary artery disease, atrial fibrillation-continue metoprolol, statins, Plavix, aspirin. Outpatient cardiology follow-up. DVT prophylaxis: Lovenox Written by German Mendoza, acting as scribe for Dr. Jacob on 11/26/16 at 10:13. The documentation accurately reflects the work performed [id number] by me on at 10:13. Discharge Planning Discharge planning later today if patient is able to void, discussed with RN. German Mendoza Nov 26, 2016 10:14 am Ludwig Jacob DO Nov 26, 2016 3:26 pm
[2016-11-26 11:08] VITALS: BP 90/54; PULSE 75; RESP 18; TEMP 98.2; O2SAT 94
[2016-11-26 15:31] VITALS: BP 131/60; PULSE 85; RESP 18; TEMP 98.5; O2SAT 97
[2016-11-26] MEDS: ENOXAPARIN SODIUM 40 MG/0.4 ML SYRINGE SQ SCH (16:25)
[2016-11-26] MEDS: traMADol HCL 50 MG TAB PO PRN ×2 (16:36→22:41)
[2016-11-26] MEDS: CLOPIDOGREL 75 MG TAB PO SCH (21:00)
[2016-11-26] MEDS: PRAVASTATIN SOD 40 MG TAB PO SCH (21:00)
[2016-11-26] MEDS: DOCUSATE SODIUM 50 MG/SENNA 8.6 MG TAB PO SCH (21:00)
[2016-11-26 21:25] VITALS: BP 102/53; PULSE 86; RESP 19; TEMP 98.3; O2SAT 95
[2016-11-27 01:30] VITALS: BP 100/60; PULSE 85; RESP 20; TEMP 98.2; O2SAT 95
[2016-11-27] MEDS: traMADol HCL 50 MG TAB PO PRN ×2 (02:32→09:35)
[2016-11-27] MEDS: SODIUM CHLOR 0.9% 1000 ML INJ 1,000 ML IV SCH (03:30)
[2016-11-27 08:31] VITALS: BP 115/58; PULSE 86; RESP 18; TEMP 95.6; O2SAT 96
[2016-11-27] MEDS: FAMOTIDINE 20 MG TAB PO SCH (09:13)
--- NOTE | 2016-11-27 09:17 | HHI.PR ---
Subjective Remarks Follow up for constipation/ileus with urinary retention. The patient was able to urinate on his own overnight, did not require Maria catheter. Constipation resolved yesterday. He is tolerating oral intake. He wants to go home. He needs a ride home, discussed with case management. Objective Vitals Vital Signs Date Time Temp Pulse Resp B/P Pulse Ox O2 Delivery O2 Flow Rate FiO2 11/27/16 08:31 95.6 86 18 115/58 96 11/27/16 01:30 98.2 85 20 100/60 95 11/26/16 21:25 98.3 86 19 102/53 95 11/26/16 15:31 98.5 85 18 131/60 97 11/26/16 11:08 98.2 75 18 90/54 94 I/O 11/26/16 11/26/16 11/26/16 11/27/16 11/27/16 11/27/16 07:00 15:00 23:00 07:00 15:00 23:00 Intake Total 84 ml Balance 84 ml Intake IV Total 84 ml Result Diagram: 11/26/16 0621 11/26/16 0621 Imaging Last Impressions Abdomen X-Ray 11/26/16 0600 Signed Impressions: Service Date/Time: Saturday, November 26, 2016 07:41 - CONCLUSION: Stable abdomen bowel gas pattern suggesting ileus Manpreet Monterroso MD Renal Ultrasound 11/25/16 0000 Signed Impressions: Service Date/Time: November 16:06 - CONCLUSION: 1. I believe there are parapelvic cysts in the left kidney without hydronephrosis. 2. Possible nonobstructing punctate renal calculi in the left renal collecting system. 3. Benign-appearing, 1 cm cortical cyst in the midpole of the right kidney. Right kidney is otherwise sonographically normal. 4. Urinary bladder is decompressed with a Maria catheter. Juan Ramon Rose MD Objective Remarks GENERAL: Well-nourished, well-developed pleasant elderly male patient in [facility]. SKIN: Warm and dry. No rash. HEENT: Normocephalic. Atraumatic. Pupils equal and round. No scleral icterus. No injection or drainage. Mucous membranes pink and moist. NECK: Supple. Trachea midline. CARDIOVASCULAR: Regular rate and rhythm. S1, S2 noted. No murmur appreciated. RESPIRATORY: No accessory muscle use. Clear to auscultation. Breath sounds equal bilaterally. GASTROINTESTINAL: Abdomen soft, non-tender, nondistended. Normoactive bowel sounds x4. MUSCULOSKELETAL: No obvious deformities. Extremities without clubbing, cyanosis , or edema. NEUROLOGICAL: Awake and alert. No obvious cranial nerve deficits. Motor grossly within normal limits. Normal speech. PSYCHIATRIC: Appropriate mood and affect; insight and judgment normal. Urinary Catheter: No A/P Problem List: (1) Urinary obstruction, unspecified ICD Code: N13.9 Status: Acute (2) Atrial fibrillation ICD Code: I48.91 Status: Chronic (3) Constipation ICD Code: K59.00 Status: Resolved (4) Obstipation ICD Code: K59.00 Status: Resolved Assessment and Plan 75-year-old male with history of coronary artery disease, atrial fibrillation presented with constipation and inability to urinate Constipation, possibly obstipation: abdominal x-ray showed bowel gas patterns suggesting ileus. Given MiraLAX, magnesium citrate, and enema with positive BM and resolution of symptoms. Continue stool softeners and fiber supplementation as outpatient. Continue home simethicone for bloating. Resolved. Urinary Retention: no history of BPH, patient had 1800 cc urine output after Maria catheter insertion. Renal U/S showed cyst, no hydronephrosis, and decompressed urinary bladder. Started on Flomax. Removed Maria catheter 11/26 and attempted void trial, patient initially had difficulty but then was able to urinate overnight, did not require replacement of Maria. Resolved. Leukocytosis: likely stress-induced, monitor, no obvious source of infection, urinalysis unremarkable. Improving, WBC 11K. Anemia-microcytic. Checked iron panel, shows iron deficiency. Needs iron supplementation, caution with constipation. PCP follow-up. Discussed with the patient. History of coronary artery disease, atrial fibrillation-continue metoprolol, statins, Plavix, aspirin. Outpatient cardiology follow-up. DVT prophylaxis: Lovenox Written by Megan Moulton, acting as scribe for Dr. Jacob on 11/27/16 at 09:16. The documentation accurately reflects the work performed [id number] by me on at 09:16. Discharge Planning Discharge patient to home Condition on discharge: Improved Heart Healthy/High Fiber Diet as tolerated Ad Pamella activity Rx written: Flomax 0.4mg daily, Roselia-Colace 2tabs po bid [facility] Megan Moulton PA-C Nov 27, 2016 09:17 Ludwig Jacob DO Nov 27, 2016 20:59
[2016-11-27] MEDS ORDERED: TAMS5CAP PO (09:20)
[2016-11-27] MEDS ORDERED: SENN1TAB PO (09:21)
[2016-11-27] MEDS: MELOXICAM 15 MG TAB PO SCH (09:31)
[2016-11-27] MEDS: METOPROLOL TARTRATE 50 MG TAB PO SCH (09:31)
[2016-11-27] MEDS: TAMSULOSIN HCL 0.4 MG CAP PO SCH (09:32)
[2016-11-27] MEDS: SIMETHICONE 80 MG CHEWABLE TAB CHEW SCH (09:32)
[2016-11-27] MEDS: ASPIRIN 325 MG TAB PO SCH (09:32)
== END 2016-11-27 12:04 | disposition home or self-care (01) ==
LOC: NEPE 07:01 → NEDA 09:40 → NEDH 19:17 → NEPFCDU 21:07
PROVIDERS: ADMIT Hospitalist; ATTEND Hospitalist
DX: N13.9 Obstructive and reflux uropathy, unspecified (principal); K56.7 Ileus, unspecified; I48.91 Unspecified atrial fibrillation; E78.5 Hyperlipidemia, unspecified; D50.9 Iron deficiency anemia, unspecified; I10 Essential (primary) hypertension; I25.10 Atherosclerotic heart disease of native coronary artery without angina pectoris; I25.2 Old myocardial infarction; D72.829 Elevated white blood cell count, unspecified; Z95.1 Presence of aortocoronary bypass graft; Z95.5 Presence of coronary angioplasty implant and graft; Z96.642 Presence of left artificial hip joint; Z95.2 Presence of prosthetic heart valve; Z86.73 Personal history of transient ischemic attack (TIA), and cerebral infarction without residual deficits; Z87.442 Personal history of urinary calculi
CPT/HCPCS: 51702; 74000; 74020; 76775; 80048; 80053; 81001; 82728; 83540; 83550; 85025; 97162; 99285; G0378; G8987; G8988; J1650; J7030

== ENCOUNTER 2017-02-14 15:34 | Observation (INO) | payer OTHER ==
[2017-02-14] VITALS (8 sets, daily range): BP systolic 115–163; BP diastolic 62–78; PULSE 66–81; RESP 16–19; TEMP 97.5–98.4; O2SAT 95–98
[~2017-02-14] VITALS: Ht 177.8 cm; Wt 92.0 kg
[~2017-02-14 15:34] MED LIST changes: +TAMS5CAP PO
--- NOTE | 2017-02-14 15:40 | PD ---
Physical Exam Time Seen by Provider: 15:[address] Mcdaniels sent for symptomatic anemia. C/o SOB. Denies hx of anemia. VS reviewed. Patient seen in triage. Awaiting bed placement. Data Data Last Documented VS Vital Signs Date Time Temp Pulse Resp B/P Pulse Ox O2 Delivery O2 Flow Rate FiO2 02/14/17 15:37 98.2 79 17 161/74 97 MDM Supervised Visit with MEREDITH: Shereen Layne February 14, 2017 15:40
[2017-02-14 15:53] LABS: MEAN CORPUSCULAR HGB CONC 28.9 % (32.0-36.0)
[2017-02-14] MEDS ORDERED: SODIUM CHLORIDE 0.9% FLUSH 10 ML FLUSH IVF PRN (16:00)
--- NOTE | 2017-02-14 16:00 | PD ---
HPI Chief Complaint: Respiratory Distress Time Seen by Provider: 15:54 Travel History International Travel<30 days: No Contact w/Intl Traveler<30days: No Traveled to known affect area: No History of Present Illness HPI Patient is a 76-year-old male presenting to the emergency department for evaluation of shortness of breath. Patient was sent by his PA doctor. Patient states the shortness of breath has been ongoing for 1 month, it is worse with exertion. Patient states that occasionally is accompanied by dizziness. He denies orthopnea but states that he needs to sit up at night to catch his breath for he goes back to sleep. Patient denies any chest pain, abdominal pain , fever, chills. He does report a 5-10 pound weight gain in last month as well as peripheral edema. He has a remote history of smoking. His past medical history is significant for coronary artery disease, aortic valve stenosis with replacement, mitral valve insufficiency, atrial ablation, hypertension, osteoarthritis, osteopenia, anxiety. Patient denies any pain at this time. PFSH Past Medical History Hx Anticoagulant Therapy: Yes (on aspirin and Plavix) Arthritis: Yes Asthma: No Atrial Fibrillation: Yes Autoimmune Disease: No Blood Disorders: No Anxiety: Yes Depression: Yes Cancer: No Cardiac Catheterization: Yes Cardiovascular Problems: Yes (mitral valve insufficiency, tricuspid insufficiency, aortic valve stenosis) High Cholesterol: No Chemotherapy: No Chest Pain: Yes Congestive Heart Failure: No COPD: No Cerebrovascular Accident: Yes Coronary Artery Disease: Yes Diabetes: No Diminished Hearing: Yes ([place]) Endocrine: No GERD: No Glaucoma: No Genitourinary: Yes (outlet obstruction, BPH) Headaches: No Hepatitis: No Hiatal Hernia: No Hypertension: Yes Immune Disorder: No Kidney Stones: Yes Neurologic: Yes (chronic back pain and neuropathy) Reproductive: No Respiratory: No Immunizations Current: No (UNKNOWN) Migraines: Yes Myocardial Infarction: Yes Radiation Therapy: No Renal Failure: No Seizures: No Sickle Cell Disease: No Sleep Apnea: No Thyroid Disease: No Ulcer: No ?: Not Past Surgical History Abdominal Surgery: Yes AICD: No Appendectomy: No Arteriovenous Shunt: No Cardiac Surgery: Yes (BYPASS, AORTIC VALVE) Cholecystectomy: Yes Coronary Artery Bypass Graft: Yes (2 BYPASSES, AORTA REPLACED) Coronary Stent: Yes Ear Surgery: No Endocrine Surgery: No Eye Surgery: No Genitourinary Surgery: No Gynecologic Surgery: No Insulin Pump: No Joint Replacement: Yes (L HIP) Oral Surgery: No Pacemaker: No Tonsillectomy: Yes Valve Replacement: Yes (AORTIC VALVE) Social History Alcohol Use: No Tobacco Use: No Substance Use: No Allergies-Medications (Allergen,Severity, Reaction): Coded Allergies: Codeine (Verified Adverse Reaction, Intermediate, Confusion, 11/25/16) Reported Meds & Prescriptions Reported Meds & Active Scripts Active Senna Plus 8.6-50 mg (Sennosides-Docusate Sodium) 1 Tab Tab 2 Tab PO BID Simethicone 80 Mg Chw 80 Mg CHEW TID Reported Probiotic (Lactobacillus Acidophilus) 1 Cap Cap 1 Cap PO DAILY Tylenol Extra Strength (Acetaminophen) 500 Mg Tab 1,000 Mg PO TID Aspirin 325 Mg Tab 325 Mg PO DAILY Plavix (Clopidogrel Bisulfate) 75 Mg Tab 75 Mg PO HS Metoprolol Tartrate 50 Mg Tab 50 Mg PO BID Zocor (Simvastatin) 20 Mg Tab 20 Mg PO HS Tramadol (Tramadol HCl) 50 Mg Tab 50 Mg PO QID Review of Systems Except as stated in HPI: all other systems reviewed are Neg HENT: Positive: Lightheadedness Cardiovascular: Positive: Dyspnea on exertion, Edema, No: Chest Pain or Discomfort Respiratory: Positive: Cough, Shortness of Breath, No: Wheezing, Orthopnea Gastrointestinal: No: Nausea, Vomiting, Diarrhea, Abdominal Pain Neurologic: Positive: Dizziness, No: Weakness, Syncope, Focal Abnormalities Physical Exam Narrative GENERAL: Well-developed, well-nourished, alert elderly gentleman. Resting comfortably in no acute distress. SKIN: Warm and dry. HEAD: Atraumatic. Normocephalic. EYES: Pupils equal and round. No scleral icterus. No injection or drainage. ENT: No nasal bleeding or discharge. Mucous membranes pink and moist. NECK: Trachea midline. No JVD. CARDIOVASCULAR: Irregularly irregular RESPIRATORY: No accessory muscle use. Clear to auscultation. Breath sounds equal and diminished in bases bilaterally. GASTROINTESTINAL: Abdomen soft, non-tender, nondistended. Hepatic and splenic margins not palpable. MUSCULOSKELETAL: Extremities without clubbing, cyanosis. No obvious deformities. 1+ peripheral edema NEUROLOGICAL: Awake and alert. No obvious cranial nerve deficits. Motor grossly within normal limits. Five out of 5 muscle strength in the arms and legs. Normal speech. PSYCHIATRIC: Appropriate mood and affect; insight and judgment normal. Data Data Last Documented VS Vital Signs Date Time Temp Pulse Resp B/P Pulse Ox O2 Delivery O2 Flow Rate FiO2 02/14/17 15:37 98.2 79 17 161/74 97 Orders Complete Blood Count With Diff (02/14/17 15:51) Comprehensive Metabolic Panel (02/14/17 15:51) B-Type Natriuretic Peptide (02/14/17 15:51) Act Partial Throm Time (Ptt) (02/14/17 15:51) Prothrombin Time / Inr (Pt) (02/14/17 15:51) Magnesium (Mg) (02/14/17 15:51) Ckmb (Isoenzyme) Profile (02/14/17 15:51) Troponin I (02/14/17 15:51) Urinalysis - C+S If Indicated (02/14/17 15:51) Iv Access Insert/Monitor (02/14/17 15:51) Electrocardiogram (02/14/17 15:51) Ecg Monitoring (02/14/17 15:51) Oximetry (02/14/17 15:51) Oxygen Administration (02/14/17 15:51) Chest, Pa & Lat (02/14/17 15:51) Sodium Chloride 0.9% Flush (Ns Flush) (02/14/17 16:00) Type And Screen (02/14/17 15:51) Furosemide Inj (Lasix Inj) (02/14/17 17:45) Magnesium Sulfate 1 Gm Premix (Magnesium (02/14/17 17:45) Potassium Chloride (Kcl) (02/14/17 17:45) Red Blood Cells (Rbc) (02/14/17 17:41) Blood Product Administration .UPON TRANSFUSION (02/14/17 17:41) Admit Order (Ed Use Only) (02/14/17 17:58) Labs Laboratory Tests Test 02/14/17 02/14/17 02/14/17 16:30 17:40 17:41 White Blood Count 8.0 TH/MM3 Red Blood Count 4.66 MIL/MM3 Hemoglobin 8.8 GM/DL Hematocrit 30.6 % Mean Corpuscular Volume 65.7 FL Mean Corpuscular Hemoglobin 19.0 PG Mean Corpuscular Hemoglobin 28.9 % Concent Red Cell Distribution Width 22.0 % Platelet Count 258 TH/MM3 Mean Platelet Volume 8.6 FL Neutrophils (%) (Auto) 51.7 % Lymphocytes (%) (Auto) 33.5 % Monocytes (%) (Auto) 12.7 % Eosinophils (%) (Auto) 1.0 % Basophils (%) (Auto) 1.1 % Neutrophils # (Auto) 4.1 TH/MM3 Lymphocytes # (Auto) 2.7 TH/MM3 Monocytes # (Auto) 1.0 TH/MM3 Eosinophils # (Auto) 0.1 TH/MM3 Basophils # (Auto) 0.1 TH/MM3 CBC Comment AUTO DIFF Differential Comment AUTO DIFF CONFIRMED Platelet Estimate NORMAL Platelet Morphology Comment NORMAL Target Cells 1+ Ovalocytes 1+ Prothrombin Time 12.0 SEC Prothromb Time International 1.1 RATIO Ratio Activated Partial 23.5 SEC Thromboplast Time Sodium Level 140 MEQ/L Potassium Level 3.7 MEQ/L Chloride Level 106 MEQ/L Carbon Dioxide Level 24.0 MEQ/L Anion Gap 10 MEQ/L Blood Urea Nitrogen 32 MG/DL Creatinine 0.97 MG/DL Estimat Glomerular Filtration 75 ML/MIN Rate Random Glucose 72 MG/DL Calcium Level 8.6 MG/DL Magnesium Level 1.4 MG/DL Total Bilirubin 0.3 MG/DL Aspartate Amino Transf 18 U/L (AST/SGOT) Alanine Aminotransferase 15 U/L (ALT/SGPT) Alkaline Phosphatase 59 U/L Total Creatine Kinase 42 U/L Troponin I LESS THAN 0.02 NG/ML B-Type Natriuretic Peptide 165 PG/ML Total Protein 7.3 GM/DL Albumin 3.5 GM/DL Blood Type AB POSITIVE Antibody Screen NEGATIVE Blood Bank Comment Urine Color YELLOW Urine Turbidity CLEAR Urine pH 5.5 Urine Specific Erhard 1.024 Urine Protein NEG mg/dL Urine Glucose (UA) NEG mg/dL Urine Ketones NEG mg/dL Urine Occult Blood NEG Urine Nitrite NEG Urine Bilirubin NEG Urine Urobilinogen LESS THAN 2.0 MG/DL Urine Leukocyte Esterase NEG Urine RBC LESS THAN 1 /hpf Urine WBC 2 /hpf Urine Squamous Epithelial <1 /hpf Cells Urine Mucus FEW /lpf Microscopic Urinalysis Comment CULT NOT INDICATED Crossmatch Leukocyte-Reduced Red Blood Cells MDM Medical Decision Making Medical Screen Exam Complete: Yes Emergency Medical Condition: Yes Interpretation(s) Last Impressions Chest X-Ray 02/14/17 3171 Signed Impressions: Service Date/Time: Tuesday, February 14, 2017 16:09 - CONCLUSION: Mild cardiomegaly with vascular prominence but no evidence of pulmonary edema. Status post CABG. Jae Henry MD Laboratory Tests Test 02/14/17 16:30 White Blood Count 8.0 TH/MM3 Red Blood Count 4.66 MIL/MM3 Hemoglobin 8.8 GM/DL Hematocrit 30.6 % Mean Corpuscular Volume 65.7 FL Mean Corpuscular Hemoglobin 19.0 PG Mean Corpuscular Hemoglobin 28.9 % Concent Red Cell Distribution Width 22.0 % Platelet Count 258 TH/MM3 Mean Platelet Volume 8.6 FL Neutrophils (%) (Auto) 51.7 % Lymphocytes (%) (Auto) 33.5 % Monocytes (%) (Auto) 12.7 % Eosinophils (%) (Auto) 1.0 % Basophils (%) (Auto) 1.1 % Neutrophils # (Auto) 4.1 TH/MM3 Lymphocytes # (Auto) 2.7 TH/MM3 Monocytes # (Auto) 1.0 TH/MM3 Eosinophils # (Auto) 0.1 TH/MM3 Basophils # (Auto) 0.1 TH/MM3 CBC Comment AUTO DIFF Differential Comment AUTO DIFF CONFIRMED Platelet Estimate NORMAL Platelet Morphology Comment NORMAL Target Cells 1+ Ovalocytes 1+ Prothrombin Time 12.0 SEC Prothromb Time International 1.1 RATIO Ratio Activated Partial 23.5 SEC Thromboplast Time Sodium Level 140 MEQ/L Potassium Level 3.7 MEQ/L Chloride Level 106 MEQ/L Carbon Dioxide Level 24.0 MEQ/L Anion Gap 10 MEQ/L Blood Urea Nitrogen 32 MG/DL Creatinine 0.97 MG/DL Estimat Glomerular Filtration 75 ML/MIN Rate Random Glucose 72 MG/DL Calcium Level 8.6 MG/DL Magnesium Level 1.4 MG/DL Total Bilirubin 0.3 MG/DL Aspartate Amino Transf 18 U/L (AST/SGOT) Alanine Aminotransferase 15 U/L (ALT/SGPT) Alkaline Phosphatase 59 U/L Total Creatine Kinase 42 U/L Troponin I LESS THAN 0.02 NG/ML B-Type Natriuretic Peptide 165 PG/ML Total Protein 7.3 GM/DL Albumin 3.5 GM/DL Blood Type AB POSITIVE Antibody Screen NEGATIVE Blood Bank Comment Vital Signs Date Time Temp Pulse Resp B/P Pulse Ox O2 Delivery O2 Flow Rate FiO2 02/14/17 15:37 98.2 79 17 161/74 97 Differential Diagnosis Congestive heart failure versus pneumonia versus bronchitis versus COPD versus arrhythmia versus anemia versus other Narrative Course Patient is a 76-year-old male presenting to emergency room evaluation of shortness of breath. Symptoms have been ongoing for 1 month, he was sent by the PA for possible symptomatic anemia. Labs and imaging ordered and pending. Patient placed on telemetry monitoring, continuous pulse oximetry, IV access was initiated. CBC with a hemoglobin of 8.8 and 30.6 BNP 165 Troponin 0.02 Mag 1.4 Otherwise chemistry is unremarkable One unit of packed red blood cells ordered due to patient's medical history and due to being symptomatic. Lasix IV, magnesium IV, oral potassium replacement ordered. [facility] paged for admission. Dr. Pereira accepted admission. Patient is agreeable currently. He did express to the nurse that he doesn't want to stay all night. Diagnosis Primary Impression: Shortness of breath Additional Impressions: Symptomatic anemia Hypomagnesemia Atrial fibrillation Qualified Code: I48.0 - Paroxysmal atrial fibrillation Admitting Information Admitting Physician Requests: Observation Condition: Stable Vanda Ruiz February 14, 2017 15:59
--- NOTE | 2017-02-14 16:18 | RADRPT ---
EXAM DATE/TIME: 02/14/2017 16:09 [facility] COMPARISON: CHEST SINGLE AP, October 19, 2016, 14:53. INDICATIONS : Shortness of breath. MEDICAL HISTORY : Cardiovascular disease. Cardiovascular disease Hypertension. SURGICAL HISTORY : CABG. ENCOUNTER: Initial ACUITY: 1 month PAIN SCORE: 0/10 LOCATION: Bilateral chest FINDINGS: Heart is mildly enlarged. Mild vascular prominence is evident throughout both lungs. There is no pulm onary edema or consolidating airspace disease. Median sternotomy wires from previous surgery noted. CONCLUSION: Mild cardiomegaly with vascular prominence but no evidence of pulmonary edema. Status post CABG. Jae Henry MD on February 14, 2017 at 16:14 Board Certified Radiologist. This report was verified electronically.
[2017-02-14 16:52] LABS: AUTOMATED NEUTROPHIL # 4.1 TH/MM3 (1.8-7.7); BASOPHIL # 0.1 TH/MM3 (0-0.2); BASOPHIL % 1.1 % (0.0-2.0); EOSINOPHIL # 0.1 TH/MM3 (0-0.4); HEMATOCRIT 30.6 % (39.0-51.0); LYMPH % 33.5 % (9.0-44.0); LYMPHOCYTE # 2.7 TH/MM3 (1.0-4.8); MEAN CELL VOLUME 65.7 FL (80.0-100.0); MONO % 12.7 % (0.0-8.0); NEUT % 51.7 % (16.0-70.0); PLATELET COUNT 258 TH/MM3 (150-450); RED BLOOD COUNT 4.66 MIL/MM3 (4.50-5.90)
[2017-02-14 17:00] LABS: HEMO FLAGS AUTO DIFF
[2017-02-14 17:02] LABS: APTT (PATIENT) 23.5 SEC (24.3-30.1); INTERNATIONAL NORMALIZED RATIO 1.1 RATIO
[2017-02-14 17:06] LABS: ANION GAP 10 MEQ/L (5-15); AST (GOT) 18 U/L (15-37); BLOOD UREA NITROGEN 32 MG/DL (7-18); CHLORIDE 106 MEQ/L (98-107); GLOMERULAR FILTRATION RATE 75 ML/MIN (>89); MAGNESIUM 1.4 MG/DL (1.5-2.5); POTASSIUM 3.7 MEQ/L (3.5-5.1); SODIUM (NA) 140 MEQ/L (136-145)
[2017-02-14 17:11] LABS: ALKALINE PHOSPHATASE 59 U/L (45-117); ALT (GPT) 15 U/L (12-78); TOTAL BILIRUBIN ADULT 0.3 MG/DL (0.2-1.0)
[2017-02-14 17:25] LABS: OVALOCYTES 1+ (NORMAL); PLATELET ESTIMATE SMEAR NORMAL (NORMAL); PLATELET MORPHOLOGY NORMAL (NORMAL); SCAN/DIFF AUTO DIFF CONFIRMED; TARGET CELLS 1+ (NORMAL)
[2017-02-14 17:29] LABS: CREATINE KINASE 42 U/L (39-308)
[2017-02-14] MEDS ORDERED: MAGNESIUM SULFATE 1 GM PREMIX 100 ML IV ONE (17:45)
[2017-02-14] MEDS ORDERED: FUROSEMIDE 40 MG/4 ML VIAL IV PUSH ONE (17:45)
[2017-02-14] MEDS ORDERED: POTASSIUM CHLORIDE 20 MEQ CONTROLLED RELEASE TAB PO ONE (17:45)
[2017-02-14] MEDS ORDERED: ACET-703 PO (18:04)
[2017-02-14] MEDS ORDERED: LACTCAP8 PO (18:04)
--- NOTE | 2017-02-14 18:06 | PD ---
Physical Exam Narrative I, Dr. Wilkes, have reviewed the advance practice practitioner's documentation and am in agreement, met with the patient face to face, made the diagnosis, and the medical decision making was done by me. *My assessment and Findings: Symptomatic anemia vs. CHF exacerbation 76yo M was sent here from for SOB on exertion. Pt states that for the last month or so, he gets sob with walking a few feet with his walker. Pt is speaking in complete sentences and not sob while sitting down. Pt given lasix 40mg IV. CXR showed mild cardiomegaly with vascular prominence but no evidence of pulmonary edema. Status post CABG. Pt has PMH CAD s/p CABG. BNP 165. Mild hypomagnesemia which was replaced with magnesium sulfate 1 gm IV. Labs reviewed, H/H is low at 8.8/30.6. Since pt is symptomatic and has CAD, will transfuse 1 unit PRBC. Discussed with Dr. Pereira and accepted to her service. Data Data Last Documented VS Vital Signs Date Time Temp Pulse Resp B/P Pulse Ox O2 Delivery O2 Flow Rate FiO2 02/14/17 15:37 98.2 79 17 161/74 97 Orders Complete Blood Count With Diff (02/14/17 15:51) Comprehensive Metabolic Panel (02/14/17 15:51) B-Type Natriuretic Peptide (02/14/17 15:51) Act Partial Throm Time (Ptt) (02/14/17 15:51) Prothrombin Time / Inr (Pt) (02/14/17 15:51) Magnesium (Mg) (02/14/17 15:51) Ckmb (Isoenzyme) Profile (02/14/17 15:51) Troponin I (02/14/17 15:51) Urinalysis - C+S If Indicated (02/14/17 15:51) Iv Access Insert/Monitor (02/14/17 15:51) Electrocardiogram (02/14/17 15:51) Ecg Monitoring (02/14/17 15:51) Oximetry (02/14/17 15:51) Oxygen Administration (02/14/17 15:51) Chest, Pa & Lat (02/14/17 15:51) Sodium Chloride 0.9% Flush (Ns Flush) (02/14/17 16:00) Type And Screen (02/14/17 15:51) Furosemide Inj (Lasix Inj) (02/14/17 17:45) Magnesium Sulfate 1 Gm Premix (Magnesium (02/14/17 17:45) Potassium Chloride (Kcl) (02/14/17 17:45) Red Blood Cells (Rbc) (02/14/17 17:41) Blood Product Administration .UPON TRANSFUSION (02/14/17 17:41) Admit Order (Ed Use Only) (02/14/17 17:58) Labs Laboratory Tests Test 02/14/17 02/14/17 16:30 17:41 White Blood Count 8.0 TH/MM3 Red Blood Count 4.66 MIL/MM3 Hemoglobin 8.8 GM/DL Hematocrit 30.6 % Mean Corpuscular Volume 65.7 FL Mean Corpuscular Hemoglobin 19.0 PG Mean Corpuscular Hemoglobin 28.9 % Concent Red Cell Distribution Width 22.0 % Platelet Count 258 TH/MM3 Mean Platelet Volume 8.6 FL Neutrophils (%) (Auto) 51.7 % Lymphocytes (%) (Auto) 33.5 % Monocytes (%) (Auto) 12.7 % Eosinophils (%) (Auto) 1.0 % Basophils (%) (Auto) 1.1 % Neutrophils # (Auto) 4.1 TH/MM3 Lymphocytes # (Auto) 2.7 TH/MM3 Monocytes # (Auto) 1.0 TH/MM3 Eosinophils # (Auto) 0.1 TH/MM3 Basophils # (Auto) 0.1 TH/MM3 CBC Comment AUTO DIFF Differential Comment AUTO DIFF CONFIRMED Platelet Estimate NORMAL Platelet Morphology Comment NORMAL Target Cells 1+ Ovalocytes 1+ Prothrombin Time 12.0 SEC Prothromb Time International 1.1 RATIO Ratio Activated Partial 23.5 SEC Thromboplast Time Sodium Level 140 MEQ/L Potassium Level 3.7 MEQ/L Chloride Level 106 MEQ/L Carbon Dioxide Level 24.0 MEQ/L Anion Gap 10 MEQ/L Blood Urea Nitrogen 32 MG/DL Creatinine 0.97 MG/DL Estimat Glomerular Filtration 75 ML/MIN Rate Random Glucose 72 MG/DL Calcium Level 8.6 MG/DL Magnesium Level 1.4 MG/DL Total Bilirubin 0.3 MG/DL Aspartate Amino Transf 18 U/L (AST/SGOT) Alanine Aminotransferase 15 U/L (ALT/SGPT) Alkaline Phosphatase 59 U/L Total Creatine Kinase 42 U/L Troponin I LESS THAN 0.02 NG/ML B-Type Natriuretic Peptide 165 PG/ML Total Protein 7.3 GM/DL Albumin 3.5 GM/DL Blood Type AB POSITIVE Antibody Screen NEGATIVE Blood Bank Comment Crossmatch Leukocyte-Reduced Red Blood Cells MDM Supervised Visit with MEREDITH: Yes Interpretation(s) EKG: Afib at 70bpm. LAD. TWI III. Diagnosis Primary Impression: Symptomatic anemia Admitting Information Admitting Physician Requests: Rosanna Mejia DO February 14, 2017 18:06
[2017-02-14 18:13] LABS: BLOOD, URINE NEG (NEG); COMMENT (UR) CULT NOT INDICATED; CULTURE IF INDICATED CULT NOT INDICATED; GLUCOSE,URINE NEG (NEG); KETONE, URINE NEG (NEG); MUCUS URINE FEW /lpf (OCC); NITRITE,URINE NEG (NEG); PH, URINE 5.5 (5.0-8.5); SQUAMOUS EPITHELIAL CELL URINE <1 /hpf (0-5); URINE COLOR YELLOW (YELLW/STRAW)
--- NOTE | 2017-02-14 18:49 | HHI.HP ---
HPI Service [facility] Primary Care Physician [facility] Admission Diagnosis Symptomatic anemia Diagnoses: Chief Complaint: Symptomatic anemia, increased shortness of breath with exertion Travel History International Travel<30 Days: No Contact w/Intl Traveler <30 Da: No Traveled to Known Affected Are: No History of Present Illness Patient is a 76-year-old male with primary medical history of atrial fibrillation, mitral valve insufficiency, tricuspid valve insufficiency, aortic valve stenosis, s/p CABG Valve replacement, anxiety, depression, BPH, anemia. Patient was seen at the [place] today by his doctor. Complains of an ongoing shortness of breath for a month worse with exertion, accompanied by occasional dizziness. His [place] doctor sent him to the ED for further evaluation. Patient's lab results came back with hemoglobin 8.8/hematocrit 30.6. Patient is due for 1 unit blood transfusion. Patient was seen and examined. States he wanted to go home because he has things to do, requesting to go home after the blood transfusion or is asking if he could go back to get the blood transfusion. Discussed with patient that due to to the labs that needs to be run for the blood transfusion to take hours for him to get the blood transfusion done. Convinced to stay at the observation unit for blood transfusion and replacement of electrolytes. Patient agrees with plan. Denies pain and discomfort. Denies chest pain, palpitations, headaches, dizziness. Denies fevers, chills, n/v/d. Denies hematochezia, hematemesis, hematuria. Review of Systems Except as stated in HPI: all other systems reviewed are Neg Past Family Social History Past Medical History Atrial fibrillation CAD with stent placement Anxiety Depression Mitral valve insufficiency is Tricuspid valve insufficiency Aortic valve stenosis BPH Chronic back pain Neuropathy HTN Osteoarthritis Osteopenia Past Surgical History Atrial ablation CABG 2 Aortic valve repair Left hip surgery Tonsillectomy Cholecystectomy Reported Medications Reported Meds & Active Scripts Active Senna Plus 8.6-50 mg (Sennosides-Docusate Sodium) 1 Tab Tab 2 Tab PO BID Simethicone 80 Mg Chw 80 Mg CHEW TID Reported Probiotic (Lactobacillus Acidophilus) 1 Cap Cap 1 Cap PO DAILY Tylenol Extra Strength (Acetaminophen) 500 Mg Tab 1,000 Mg PO TID Aspirin 325 Mg Tab 325 Mg PO DAILY Plavix (Clopidogrel Bisulfate) 75 Mg Tab 75 Mg PO HS Metoprolol Tartrate 50 Mg Tab 50 Mg PO BID Zocor (Simvastatin) 20 Mg Tab 20 Mg PO HS Tramadol (Tramadol HCl) 50 Mg Tab 50 Mg PO QID Allergies: Coded Allergies: Codeine (Verified Adverse Reaction, Intermediate, Confusion, 11/25/16) Active Ordered Medications Current Medications Medications (Trade) Dose Ordered Sig/Ton Route Start Time Stop Time Status Last Admin Sodium Chloride 2 ml 2 ml UNSCH PRN IVF 02/14/17 16:00 (Magnesium Sulfate 1 Gm Premix) 100 ml @ 100 mls/hr ONCE ONCE IV 02/14/17 17:45 02/14/17 18:44 Family History One child with marfans mother passed of pancreatic cancer father unknown medical history Social History Lives alone Denies alcohol use Denies tobacco use, former smoker Denies illicit drug use Physical Exam Vital Signs Vital Signs Date Time Temp Pulse Resp B/P Pulse Ox O2 Delivery O2 Flow Rate FiO2 02/14/17 15:37 98.2 79 17 161/74 97 Physical Exam GENERAL: This is a well-nourished, well-developed patient, appears older than stated age. In no apparent distress. SKIN: No rashes, ecchymoses or lesions. Warm and dry. HEAD: Normocephalic. No temporal or scalp tenderness. EYES: Pupils equal round and reactive. . No scleral icterus. No injection or drainage. ENT: Nose without bleeding. Throat without erythema. Uvula midline. Airway patent. NECK: Trachea midline. Supple, nontender, no meningeal signs. CARDIOVASCULAR: Regular rate and rhythm with systolic murmurs, gallops, or rubs. RESPIRATORY: Diminished bases. No wheezes, rales, or rhonchi. GASTROINTESTINAL: Abdomen soft, non-tender, nondistended. Bowel sounds active 4 MUSCULOSKELETAL: Extremities without clubbing, cyanosis, bilateral lower extremity +1 edema. NEUROLOGICAL: Awake and alert. Pleasant. Oriented to self, person, place, time. Motor and sensory grossly within normal limits. Walker use. Normal speech. Laboratory Laboratory Tests Test 02/14/17 02/14/17 02/14/17 16:30 17:40 17:41 White Blood Count 8.0 Red Blood Count 4.66 Hemoglobin 8.8 Hematocrit 30.6 Mean Corpuscular Volume 65.7 Mean Corpuscular Hemoglobin 19.0 Mean Corpuscular Hemoglobin 28.9 Concent Red Cell Distribution Width 22.0 Platelet Count 258 Mean Platelet Volume 8.6 Neutrophils (%) (Auto) 51.7 Lymphocytes (%) (Auto) 33.5 Monocytes (%) (Auto) 12.7 Eosinophils (%) (Auto) 1.0 Basophils (%) (Auto) 1.1 Neutrophils # (Auto) 4.1 Lymphocytes # (Auto) 2.7 Monocytes # (Auto) 1.0 Eosinophils # (Auto) 0.1 Basophils # (Auto) 0.1 CBC Comment AUTO DIFF Differential Comment AUTO DIFF CONFIRMED Platelet Estimate NORMAL Platelet Morphology Comment NORMAL Target Cells 1+ Ovalocytes 1+ Prothrombin Time 12.0 Prothromb Time International 1.1 Ratio Activated Partial 23.5 Thromboplast Time Sodium Level 140 Potassium Level 3.7 Chloride Level 106 Carbon Dioxide Level 24.0 Anion Gap 10 Blood Urea Nitrogen 32 Creatinine 0.97 Estimat Glomerular Filtration 75 Rate Random Glucose 72 Calcium Level 8.6 Magnesium Level 1.4 Total Bilirubin 0.3 Aspartate Amino Transf 18 (AST/SGOT) Alanine Aminotransferase 15 (ALT/SGPT) Alkaline Phosphatase 59 Total Creatine Kinase 42 Troponin I LESS THAN 0.02 B-Type Natriuretic Peptide 165 Total Protein 7.3 Albumin 3.5 Blood Type AB POSITIVE Antibody Screen NEGATIVE Blood Bank Comment Urine Color YELLOW Urine Turbidity CLEAR Urine pH 5.5 Urine Specific [place] 1.024 Urine Protein NEG Urine Glucose (UA) NEG Urine Ketones NEG Urine Occult Blood NEG Urine Nitrite NEG Urine Bilirubin NEG Urine Urobilinogen LESS THAN 2.0 Urine Leukocyte Esterase NEG Urine RBC LESS THAN 1 Urine WBC 2 Urine Squamous Epithelial <1 Cells Urine Mucus FEW Microscopic Urinalysis Comment CULT NOT INDICATED Crossmatch Leukocyte-Reduced Red Blood Cells Result Diagram: 02/14/17 1630 02/14/17 1630 Imaging Last Impressions Chest X-Ray 02/14/17 1551 Signed Impressions: Service Date/Time: Tuesday, February 14, 2017 16:09 - CONCLUSION: Mild cardiomegaly with vascular prominence but no evidence of pulmonary edema. Status post CABG. Jae Henry MD Assessment and Plan Problem List: (1) Atrial fibrillation ICD Code: I48.91 Status: Chronic (2) Microcytic anemia ICD Code: D50.9 Status: Chronic (3) Elderly person living alone ICD Code: Z60.2 Status: Chronic (4) Shortness of breath ICD Code: R06.02 Status: Acute (5) Hypomagnesemia ICD Code: E83.42 Status: Acute (6) Symptomatic anemia ICD Code: D64.9 Status: Acute Assessment and Plan Patient is a 76-year-old male with primary medical history of atrial fibrillation, mitral valve insufficiency, tricuspid valve insufficiency, aortic valve stenosis, s/p CABG Valve replacement, anxiety, depression, BPH, anemia. Patient was seen at the [place] today by his doctor. Complains of an ongoing shortness of breath for a month worse with exertion, accompanied by occasional dizziness. [facility] for further evaluation. Patient's lab results came back with hemoglobin 8.8/hematocrit 30.6. Symptomatic anemia, on chronic microcytic anemia - Complaining of shortness of breath with exertion - Previous labs reviewed, patient has chronic microcytic anemia, with low iron levels, and ferritin. Denies hematochezia, hematemesis, hematuria. - Type and cross. One unit packed RBCs ordered. Lasix posttransfusion. KCl with Lasix. - Check post transfusion H&H - DC with iron supplements Hypomagnesemia - Replace magnesium - Check magnesium levels tomorrow History of coronary artery disease, atrial fibrillation-continue metoprolol, statins, Plavix, aspirin Discuss with patient that if overall transfusion is without any reaction and overnight stay is uneventful, plan to DC tomorrow early AM. Case management - DC early tomorrow DVT prop SCDs Written by Lizzy Mac, acting as scribe for Dr. Pereira on 02/14/17 at 18:46. Code Status Full code Discussed Condition With Patient, nursing, ED attending Attending Statement The exam, history, and the medical decision-making described in the above note were completed with the assistance of the mid-level provider. I reviewed and agree with the findings presented. I attest that I had a [id number] encounter with the patient on the same day, and personally performed and documented my assessment and findings in the medical record. Patient complaining of dyspnea. He stated that [facility]. Otherwise he stated that he feels pretty good. Denied any chest pain or lower extremity edema. Gen NAD resp CTA B/L abd soft NDNT CV RRR. no r/m/g LE no edema A/P Symptomatic anemia History of CHF BMP is within normal limits. Patient is being transfused with 1 unit packed red blood cells. Once patient is transfused will follow with posttransfusion blood level. If patient continues to well can be discharge home tomorrow. Problem Qualifiers (1) Atrial fibrillation: Qualified Code: I48.0 - Paroxysmal atrial fibrillation Lizzy Lucero February 14, 2017 18:49 June Pereira MD February 14, 2017 18:56
[2017-02-14] MEDS ORDERED: ONDANSETRON HCL 4 MG/2 ML VIAL IVP PRN (19:00)
[2017-02-14] MEDS ORDERED: ACETAMINOPHEN 325 MG TAB PO PRN (19:00)
[2017-02-14] MEDS ORDERED: NALOXONE HCL 0.4 MG/ML AMP IV PRN (19:00)
[2017-02-14] MEDS ORDERED: SODIUM CHLORIDE 0.9% FLUSH 10 ML FLUSH IV FLUSH PRN (19:00)
[2017-02-14] MEDS ORDERED: MAGNESIUM HYDROXIDE SUSP 30 ML CUP PO PRN (19:00)
[2017-02-14] MEDS ORDERED: BISACODYL 10 MG SUPP RECTAL PRN (19:00)
[2017-02-14] MEDS ORDERED: PRAVASTATIN SOD 40 MG TAB PO SCH (21:00)
[2017-02-14] MEDS ORDERED: CLOPIDOGREL 75 MG TAB PO SCH (21:00)
[2017-02-14] MEDS ORDERED: METOPROLOL TARTRATE 50 MG TAB PO SCH (21:00)
[2017-02-15 00:49] VITALS: BP 123/62; PULSE 69; RESP 16; TEMP 97.9; O2SAT 96
[2017-02-15] MEDS ORDERED: SIMETHICONE 80 MG CHEWABLE TAB CHEW SCH (09:00)
[2017-02-15] MEDS ORDERED: LACTOBACILLUS ACIDOPHILUS TAB PO SCH (09:00)
[2017-02-15] MEDS ORDERED: FERROUS SULFATE 325 MG (65 MG ELEMENTAL IRON) TAB PO SCH (09:00)
[2017-02-15] MEDS ORDERED: ASPIRIN 325 MG TAB PO SCH (09:00)
--- NOTE | 2017-02-15 15:47 | EKG ---
Date Performed: 02/14/2017 Time Performed: 16:44:31 PTAGE: 76 years EKG: ATRIAL FIBRILLATION INFERIOR MYOCARDIAL INFARCTION Compared to prior tracing no significant change ABNORMAL ECG PREVIOUS TRACING : 10/19/2016 13.02 DOCTOR: Savannah Angel Interpretating Date/Time 02/15/2017 15:45:01
== END 2017-02-15 01:12 | disposition left against medical advice (07) ==
LOC: NEPC 15:34 → NEDA 17:59 → NEPHCDU 20:46
PROVIDERS: ADMIT Family Medicine; ATTEND Family Medicine
DX: D50.9 Iron deficiency anemia, unspecified (principal); E83.42 Hypomagnesemia; I25.10 Atherosclerotic heart disease of native coronary artery without angina pectoris; I48.91 Unspecified atrial fibrillation; F41.9 Anxiety disorder, unspecified; F32.9 Major depressive disorder, single episode, unspecified; N40.0 Benign prostatic hyperplasia without lower urinary tract symptoms; I10 Essential (primary) hypertension; M85.80 Other specified disorders of bone density and structure, unspecified site; G62.9 Polyneuropathy, unspecified; M54.9 Dorsalgia, unspecified; G89.29 Other chronic pain; H91.90 Unspecified hearing loss, unspecified ear; I25.2 Old myocardial infarction; Z95.5 Presence of coronary angioplasty implant and graft; Z96.642 Presence of left artificial hip joint; Z95.1 Presence of aortocoronary bypass graft; Z79.82 Long term (current) use of aspirin; Z79.02 Long term (current) use of antithrombotics/antiplatelets; Z86.73 Personal history of transient ischemic attack (TIA), and cerebral infarction without residual deficits; Z88.5 Allergy status to narcotic agent; Z87.891 Personal history of nicotine dependence; Z95.2 Presence of prosthetic heart valve
CPT/HCPCS: 36430; 71020; 80053; 81001; 82550; 83735; 83880; 84484; 85025; 85610; 85730; 86850; 86900; 86901; 86920; 93005; 99285; G0378; J1940; J3475; P9016

== ENCOUNTER 2018-01-10 01:04 | Emergency (ER) | payer OTHER ==
[~2018-01-10] VITALS: Ht 175.3 cm; Wt 72.0 kg
[~2018-01-10 01:04] MED LIST changes: +ACET-703 PO; +ASPI-183 PO; -ASPI325T PO; -FAMO20TA2 PO; +LACTCAP8 PO; -MOBI15TA PO; -TAMS5CAP PO
[2018-01-10 01:06] VITALS: BP 142/75; PULSE 63; RESP 18; TEMP 98.5; O2SAT 99
--- NOTE | 2018-01-10 01:56 | PD ---
HPI Chief Complaint: Laceration/Skin Injury Time Seen by Provider: 01:27 Travel History International Travel<30 days: No Contact w/Intl Traveler<30days: No Traveled to known affect area: No History of Present Illness HPI Patient is a 77-year-old male presenting to the emergency department for evaluation of a laceration to his left third finger. He states he was trying to pry 2 hamburgers apart with a knife when it slipped cutting his finger. Injury occurred 8 hours prior to arrival. Patient states started bleeding again which is what prompted the visit to the emergency department. Denies any pain at this time, he reports that he washed the wound well. Tetanus vaccine is up-to-date. PFSH Past Medical History Hx Anticoagulant Therapy: Yes (on aspirin and Plavix) Arthritis: Yes Asthma: No Atrial Fibrillation: Yes Autoimmune Disease: No Blood Disorders: Yes (ANEMIA ) Anxiety: Yes Depression: Yes Heart Rhythm Problems: Yes (AFIB ) Cancer: No Cardiac Catheterization: Yes (atrial ablation) Cardiovascular Problems: Yes (CABG, STENT, CAD, VALVE REPLACEMENT) High Cholesterol: Yes Chemotherapy: No Chest Pain: No Congestive Heart Failure: No COPD: No Cerebrovascular Accident: Yes Coronary Artery Disease: Yes Diabetes: No Diminished Hearing: No Endocrine: No Gastrointestinal Disorders: No GERD: No Glaucoma: No Genitourinary: No Headaches: No Hepatitis: No Hiatal Hernia: No Heparin Induced Thrombocytopen: No Hypertension: Yes Immune Disorder: No Implanted Vascular Access Dvce: No Kidney Stones: Yes Musculoskeletal: No Neurologic: No Psychiatric: Yes Reproductive: No Respiratory: No Immunizations Current: No (UNKNOWN) Migraines: Yes Myocardial Infarction: Yes Radiation Therapy: No Renal Failure: No Seizures: No Sickle Cell Disease: No Sleep Apnea: No Thyroid Disease: No Ulcer: No Past Surgical History Abdominal Surgery: Yes AICD: No Appendectomy: No Arteriovenous Shunt: No Cardiac Surgery: Yes (aortic valve repair) Cholecystectomy: Yes Coronary Artery Bypass Graft: Yes (Valve replacement) Coronary Stent: Yes Ear Surgery: No Endocrine Surgery: No Eye Surgery: No Genitourinary Surgery: No Gynecologic Surgery: No Insulin Pump: No Joint Replacement: Yes (L hip) Neurologic Surgery: No Oral Surgery: No Pacemaker: No Thoracic Surgery: Yes (TONSILLECTOMY) Tonsillectomy: Yes Valve Replacement: Yes (AORTIC VALVE) Other Surgery: Yes (CABG) Social History Alcohol Use: No Tobacco Use: No Substance Use: No Allergies-Medications (Allergen,Severity, Reaction): Coded Allergies: codeine (Unverified Adverse Reaction, Intermediate, Confusion, 01/10/18) Reported Meds & Prescriptions Reported Meds & Active Scripts Active Senna Plus 8.6-50 mg (Sennosides-Docusate Sodium) 1 Tab Tab 2 Tab PO BID Simethicone 80 Mg Chw 80 Mg CHEW TID Reported Probiotic (Lactobacillus Acidophilus) 1 Cap Cap 1 Cap PO DAILY Tylenol Extra Strength (Acetaminophen) 500 Mg Tab 1,000 Mg PO TID Aspirin 325 Mg Tab 325 Mg PO DAILY Plavix (Clopidogrel Bisulfate) 75 Mg Tab 75 Mg PO HS Metoprolol Tartrate 50 Mg Tab 50 Mg PO BID Zocor (Simvastatin) 20 Mg Tab 20 Mg PO HS Tramadol (Tramadol HCl) 50 Mg Tab 50 Mg PO QID Review of Systems Except as stated in HPI: all other systems reviewed are Neg Skin: Positive Other (Laceration) Physical Exam Narrative GENERAL: Well-developed, well-nourished, alert elderly male. Presenting in no acute distress. SKIN: Warm and dry. 0.5 cm superficial laceration to the medial aspect of the left fourth fingertip at the DIP joint. HEAD: Normocephalic. EYES: No scleral icterus. No injection or drainage. NECK: Supple, trachea midline. No JVD or lymphadenopathy. CARDIOVASCULAR: Regular rate and rhythm without murmurs, gallops, or rubs. RESPIRATORY: Breath sounds equal bilaterally. No accessory muscle use. GASTROINTESTINAL: Abdomen soft, non-tender, nondistended. MUSCULOSKELETAL: No cyanosis, or edema. BACK: Nontender without obvious deformity. No CVA tenderness. Data Data Last Documented VS Vital Signs Date Time Temp Pulse Resp B/P (MAP) Pulse Ox O2 Delivery O2 Flow Rate FiO2 01/10/18 01:06 98.5 63 18 142/75 (97) 99 Orders Orders Ed Discharge Order (01/10/18 01:56) MDM Medical Decision Making Medical Screen Exam Complete: Yes Emergency Medical Condition: Yes Interpretation(s) Vital Signs Date Time Temp Pulse Resp B/P (MAP) Pulse Ox O2 Delivery O2 Flow Rate FiO2 01/10/18 01:06 98.5 63 18 142/75 (97) 99 Differential Diagnosis Laceration versus abrasion versus contusion versus other Narrative Course Patient is a 77-year-old male presenting to the emergency room for evaluation of a laceration to his finger. Patient is neurovascularly intact. Attempted to control bleeding with pressure, finger continued to bleed so stitches were placed. Please see procedure report. Finger was placed in a finger cage, he was encouraged to use the cage for the next 24-48 hours. He was advised that stitches will need to be removed in 7-10 days. He was advised on signs and symptoms of infection. Patient verbalized understanding of these instructions. Patient stable for discharge. Procedures Procedure Narrative LACERATION LOCATION: Left third finger LENGTH: 0.5 cm NUMBER OF STITCHES/DAVE: 2 stitches REPAIR: The area of the laceration was prepped with Betadine and sterilely draped. The laceration was infiltrated with 1% lidocaine. The wound was copiously irrigated and explored without evidence of foreign body, tendon injury or neurovascular injury. The wound was closed using 5-0 Prolene. This was a 1 layer repair. A sterile dressing was applied. The patient was advised to keep the dressing clean and dry. Patient tolerated the procedure well. Diagnosis Primary Impression: Laceration of finger Qualified Codes: S61.213A - Laceration without foreign body of left middle finger without damage to nail, initial encounter Referrals: Primary Care Physician Patient Instructions: Care For Your Stitches (ED), Finger Laceration (ED), General Instructions Additional Instructions: Keep stitches clean and dry Stitches will need to be removed in 7-10 days Wear finger splint for 24-48 hours Return to emergency department for any new or worsening symptoms Med/Other Pt SpecificInfo: No Change to Meds Disposition: 01 DISCHARGE HOME Condition: Stable JosephVanda stevensCandice [facility] Jan 10, 2018 01:56
== END 2018-01-10 02:24 | disposition home or self-care (01) ==
LOC: NEPD 01:04
DX: S61.213A Laceration without foreign body of left middle finger without damage to nail, initial encounter (principal); W26.0XXA Contact with knife, initial encounter; Y93.G1 Activity, food preparation and clean up; I10 Essential (primary) hypertension; I25.10 Atherosclerotic heart disease of native coronary artery without angina pectoris; I48.91 Unspecified atrial fibrillation; E78.00 Pure hypercholesterolemia, unspecified; I25.2 Old myocardial infarction; F32.9 Major depressive disorder, single episode, unspecified; F41.9 Anxiety disorder, unspecified; Z86.73 Personal history of transient ischemic attack (TIA), and cerebral infarction without residual deficits; Z95.5 Presence of coronary angioplasty implant and graft; Z95.2 Presence of prosthetic heart valve; Z95.1 Presence of aortocoronary bypass graft; Z88.5 Allergy status to narcotic agent; Z79.899 Other long term (current) drug therapy; Z79.82 Long term (current) use of aspirin
CPT/HCPCS: 12001